=== PATIENT | male | born 1955 | race Caucasian/White ===

== ENCOUNTER 2016-06-22 19:30 | Inpatient (IN) | payer BC, OTHER ==
[~2016-06-22] VITALS: Ht 190.5 cm; Wt 129.7 kg
[~2016-06-22 19:30] MED LIST: BREATHING TX; CIPRO; DILTIAZEM 100 MG/VIAL (CARDIZEM) ADD-VANTAGE IV ONE; NAPROSYN; SODIUM CHLORIDE (ADD-VANTAGE) 100 ML IV ONE; SULF1TAB38 PO; TUSS; TYLENOL
[2016-06-22] MEDS ORDERED: DILTIAZEM 25 MG/5 ML INJ (CARDIZEM) VIAL ONE (19:31)
[2016-06-22] MEDS ORDERED: NS IV 1000 ML 1,000 ML ONE (19:31)
[2016-06-22] MEDS ORDERED: DILTIAZEM 25 MG/5 ML INJ (CARDIZEM) VIAL IVP ONE (20:00)
[2016-06-22] MEDS ORDERED: DILTIAZEM DRIP 100 MG in SODIUM CHLORIDE (ADD-VANTAGE) 100 ML IV SCH (20:00)
[2016-06-22] MEDS ORDERED: ASPIRIN 81 MG CHEW (CHILDREN'S ASA) PO ONE (20:00)
[2016-06-22 20:03] LABS: BASOPHILS % (AUTO) 0 % (0-10); EOSINOPHILS # (AUTO) 0.3 10^3/uL (0.0-0.3); EOSINOPHILS % (AUTO) 4 % (0-10); LYMPHOCYTES # (AUTO) 2.9 X 10^3 (1.0-4.0); LYMPHOCYTES % (AUTO) 34 % (12-44); MEAN CORPUSCULAR HEMOGLOBIN 31 PG (25-34); MEAN CORPUSCULAR HGB CONC 35 G/DL (32-36); MEAN CORPUSCULAR VOLUME 88 FL (80-99); MEAN PLATELET VOLUME 9.9 FL (7.4-10.4); MONOCYTES # (AUTO) 0.9 X 10^3 (0.0-1.0); MONOCYTES % (AUTO) 11 % (0-12); NEUTROPHILS # (AUTO) 4.2 X 10^3 (1.8-7.8); NEUTROPHILS % (AUTO) 50 % (42-75); PLATELET COUNT 196 10^3/uL (130-400); RED BLOOD COUNT 5.33 10^6/uL (4.35-5.85); RED CELL DISTRIBUTION WIDTH 12.4 % (10.0-14.5); WHITE BLOOD COUNT 8.4 10^3/uL (4.3-11.0)
--- NOTE | 2016-06-22 20:05 | ED Cardiac General ---
History of Present Illness General Chief Complaint: Cardiac/General Problems Stated Complaint: IRREGULAR HEART RATE Nursing Triage Note: PT TO ER WITH C/O PALPITATIONS, IRREG HEART RATE, ET LIGHT-HEADEDNESS STARTING AT APPROX 1920. Source: patient Exam Limitations: no limitations History of Present Illness Time seen by provider: 19:41 Initial Comments Here with report of irregular heart rate that started at about 20 minutes ago. He states he was sitting at work and stood up and felt his heartbeat very irregular. He had them check it and they noted that his heart rate was very irregular so he came here. States that he's had history of intermittent palpitations in the past but usually clears within a few seconds to not more than a minute. Tonight it suddenly started and he felt the onset. Denies significant chest pain but feels a fluttering in his chest. Denies breathing problems, nausea, vomiting or diarrhea. Not on any medicines regularly and states overall is pretty healthy. Timing/Duration: 1/2 hour, constant Severity: moderate Location: central Prior CP/Workup: no prior chest pain NTG SL STORY WRITER: No ASA po STORY WRITER: No Associated Systoms: No Chest Pain, No Cough, No Diaphoresis, No Fever/Chills, No Nausea/Vomiting, No Shortness of Air Allergies and Home Medications Allergies Coded Allergies: No Known Drug Allergies (Verified Allergy, Unknown, 04/24/07) Home Medications No Active Prescriptions or Reported Meds Review of Systems Constitutional: see HPINo chills, No fever EENTM: No Symptoms Reported Respiratory: No Symptoms ReportedDenies Orthopnea, Denies Shortness of Air Cardiovascular: Denies Chest Pain, Lightheadedness Palpitations Gastrointestinal: No Symptoms ReportedDenies Abdominal Pain, Denies Nausea, Denies Vomiting Genitourinary: No Symptoms Reported Musculoskeletal: no symptoms reported Skin: no symptoms reported All Other Systems Reviewed Negative Unless Noted: Yes Past Hiddpae-Ntsrce-Ygbkpu Hx Patient Social History Alcohol Use: Occasionally Uses Recreational Drug Use: No Smoking Status: Former Smoker Recent Foreign Travel: No Contact w/Someone Who Travel: No Recent Infectious Disease Expo: No Surgeries HX Surgeries: Yes Surgeries: Adenoidectomy Respiratory Hx Respiratory Disorders: No Cardiovascular Hx Cardiac Disorders: No Reproductive System Hx Reproductive Disorders: No Genitourinary Hx Genitourinary Disorders: No Gastrointestinal Hx Gastrointestinal Disorders: No Musculoskeletal Hx Musculoskeletal Disorders: Yes (BACK PAIN,SPASMS) Endocrine Hx Endocrine Disorders: No HEENT HX ENT Disorders: No Psychosocial Hx Psychiatric Problems: No Blood Transfusions Hx Blood Disorders: No Reviewed Nursing Assessment Reviewed/Agree w Nursing PMH: Yes Family Medical History Significant Family History: No Pertinent Family Hx Physical Exam Vital Signs Vital Sign - Last 12Hours 06/22/16 06/22/16 06/22/16 19:30 19:44 19:45 Temp 98.8 Pulse 154 Resp 20 B/P 145/92 Pulse Ox 93 O2 Delivery Nasal Cannula O2 Flow Rate 2 Capillary Refill : Less Than 3 Seconds General Appearance: No Apparent Distress WD/WN HEENT: PERRL/EOMI Pharynx Normal Neck: Non Tender Supple Respiratory: Lungs Clear Normal Breath Sounds Cardiovascular: No Murmur Irregularly Irregular Tachycardia Gastrointestinal: Non Tender Soft Extremity: Non Tender No Calf Tenderness Neurologic/Psychiatric: Alert Oriented x3 Skin: Normal Color Warm/Dry Progress/Results/Core Measures Results/Orders Lab Results Laboratory Tests Test 06/22/16 19:35 Range/Units Activated Partial Thromboplast Time 25 24-35 SEC Alanine Aminotransferase (ALT/SGPT) 25 0-55 U/L Albumin 4.4 3.2-4.5 G/DL Alkaline Phosphatase 68 40-136 U/L Anion Gap 11 5-14 MMOL/L Aspartate Amino Transf (AST/SGOT) 15 5-34 U/L BUN/Creatinine Ratio 16 Basophils # (Auto) 0.0 0.0-0.1 10^3/uL Basophils (%) (Auto) 0 0-10 % Blood Urea Nitrogen 16 7-18 MG/DL Calcium Level 9.1 8.5-10.1 MG/DL Carbon Dioxide Level 24 21-32 MMOL/L Chloride Level 106 98-107 MMOL/L Creatinine 0.97 0.60-1.30 MG/DL Eosinophils # (Auto) 0.3 0.0-0.3 10^3/uL Eosinophils (%) (Auto) 4 0-10 % Estimat Glomerular Filtration Rate > 60 Glucose Level 103 70-105 MG/DL Hematocrit 47 40-54 % Hemoglobin 16.3 13.3-17.7 G/DL INR Comment 1.0 0.8-1.4 Lymphocytes # (Auto) 2.9 1.0-4.0 X 10^3 Lymphocytes (%) (Auto) 34 12-44 % Magnesium Level 2.4 1.8-2.4 MG/DL Mean Corpuscular Hemoglobin 31 25-34 PG Mean Corpuscular Hemoglobin Concent 35 32-36 G/DL Mean Corpuscular Volume 88 80-99 FL Mean Platelet Volume 9.9 7.4-10.4 FL Monocytes # (Auto) 0.9 0.0-1.0 X 10^3 Monocytes (%) (Auto) 11 0-12 % Myoglobin 44.3 10.0-92.0 NG/ML Neutrophils # (Auto) 4.2 1.8-7.8 X 10^3 Neutrophils (%) (Auto) 50 42-75 % Platelet Count 196 130-400 10^3/uL Potassium Level 3.8 3.6-5.0 MMOL/L Prothrombin Time 13.1 12.2-14.7 SEC Red Blood Count 5.33 4.35-5.85 10^6/uL Red Cell Distribution Width 12.4 10.0-14.5 % Sodium Level 141 135-145 MMOL/L Total Bilirubin 0.4 0.1-1.0 MG/DL Total Protein 6.6 6.4-8.2 G/DL Troponin I < 0.30 <0.30 NG/ML White Blood Count 8.4 4.3-11.0 10^3/uL My Orders Orders-EDEN ALVAREZ MD Sodium Chloride (Add-Faxon) (Ns (Add-V (06/22/16 19:30) Diltiazem Drip (Cardizem Drip) (06/22/16 19:30) Diltiazem Injection (Cardizem Injection) (06/22/16 19:31) Ns Iv 1000 Ml (Sodium Chloride 0.9%) (06/22/16 19:31) Cbc With Automated Diff (06/22/16 19:52) Magnesium (06/22/16 19:52) Chest 1 View, Ap/Pa Only (06/22/16 19:52) Ekg Tracing (06/22/16 19:52) Cardiac Profile 1 (06/22/16 19:52) Comprehensive Metabolic Panel (06/22/16 19:52) Myoglobin Serum (06/22/16 19:52) Protime With Inr (06/22/16 19:52) Partial Thromboplastin Time (1/25/17 19:52) O2 (06/22/16 19:52) Monitor-Rhythm Ecg Trace Only (06/22/16 19:52) Lipid Panel (06/23/16 06:00) Aspirin Chewable Tablet (Baby Aspirin Ch (06/22/16 20:00) Saline Lock/Iv-Start (06/22/16 19:52) Sodium Chloride (Ad... W/Diltiazem Drip (06/22/16 20:00) Diltiazem Injection (Cardizem Injection) (06/22/16 20:00) Apixaban Tablet (Eliquis Tablet) (06/22/16 20:45) Medications Given in ED Current Medications Medications Dose Ordered Sig/Yudi Route Start Time Stop Time Status Last Admin Dose Admin Aspirin 324 mg ONCE ONCE PO 06/22/16 20:00 06/22/16 20:01 DC 06/22/16 20:00 324 MG Diltiazem HCl 10 mg ONCE ONCE IVP 06/22/16 20:00 06/22/16 20:01 DC 06/22/16 20:03 10 MG Diltiazem HCl 100 mg STK-MED ONCE IV 06/22/16 19:30 06/22/16 19:38 DC 06/22/16 19:44 10 MG Diltiazem HCl 25 mg 25 mg STK-MED ONCE .ROUTE 06/22/16 19:31 06/22/16 19:38 DC 06/22/16 19:42 10 MG Sodium Chloride 100 ml STK-MED ONCE IV 06/22/16 19:30 06/22/16 19:38 DC 06/22/16 19:44 Sodium Chloride 1,000 ml STK-MED ONCE .ROUTE 06/22/16 19:31 06/22/16 19:39 DC 06/22/16 19:42 Vital Signs/I&O Vital Sign - Last 12Hours 06/22/16 06/22/16 06/22/16 19:30 19:44 19:45 Temp 98.8 Pulse 154 143 Resp 20 16 B/P 145/92 Pulse Ox 93 O2 Delivery Nasal Cannula O2 Flow Rate 2 Progress Note : Progress Note Seen and evaluated on arrival IV, labs, EKG and chest x-ray ordered. ASA 324 mg by mouth ordered. Cardizem 10 mg IV and 10 mg per hour drip initiated. Normal saline 1 L bolus. Monitor patient. 1999: Repeat dosing of Cardizem 10 mg IV and increasing drip rate to 15 mg per hour due to heart rate still greater than 110 systolic. Heart rate has declined though from maximum 160s to max of 130s currently. 2039: Cardizem drip increased to 20 mg per hour. I did discuss the case with Dr. Whyte. She accepts patient for admission. Consult Dr. Ruiz. 2044: Dr. Ruiz consulted. We will initiate Eliquis 5 mg by mouth and continue that twice a day. Findings and concerns discussed with patient and family who agree with plan. Admit, inpatient status to ICU. ECG Initial ECG Impression Date: Jun 22, 2016 Initial ECG Impression Time: 19:35 Initial ECG Rate: 154 Initial ECG Rhythm: A Fib/Flutter Comment Atrial fibrillation with rapid ventricular response. No evidence of ST elevation NE. No previous available for comparison. Interpreted by me. Diagnostic Imaging Diagonstic Imaging: Xray Plain Films/CT/US/NM/MRI: chest Comments NAME: GABRIELE BECK [facility] REC#: [id number] PT STATUS: REG ER : 1955 PHYSICIAN: EDEN ALVAREZ MD ADMIT DATE: 06/22/16/ER Draft Date of Exam:06/22/16 CHEST 1 VIEW, AP/PA ONLY INDICATION: Fluttering in the chest. EXAMINATION: Chest, 06/22/2016. COMPARISON: Chest from 09/16/2007. FINDINGS: The heart is enlarged. Pulmonary vasculature is mildly congested. There are no infiltrates or effusions. There is no pneumothorax. IMPRESSION: Cardiomegaly with mild prominence of the pulmonary vasculature. Dictated on workstation # [id number] Dict: 06/22/162037 Trans: 06/22/162042 LOCATED WITHIN [facility] [id number] Interpreted by: RAQUEL MILLS MD Electronically signed by: Reviewed: Reviewed by Me Departure Communication Time/Spoke to Admitting Phy: 20:40 Time/Spoke to Consulting Physi: 20:45 Impression Impression: Primary Impression: Atrial fibrillation with RVR Disposition: ADMITTED INPATIENT Condition: Stable Decision to Admit Reason: Admit from ER (General) Decision to Admit/Date: Jun 22, 2016 Time/Decision to Admit Time: 20:40 Departure-Patient Inst. Referrals: ILIANA WHYTE DO (PCP/Family) Primary Care Physician Scripts No Active Prescriptions or Reported Meds EDEN ALVAREZ MD Jun 22, 2016 20:05
[2016-06-22 20:14] LABS: PROTHROMBIN TIME PATIENT 13.1 SEC (12.2-14.7)
[2016-06-22 20:24] LABS: ALANINE AMINOTRANSFERASE 25 U/L (0-55); ALBUMIN 4.4 G/DL (3.2-4.5); ANION GAP 11 MMOL/L (5-14); ASPARTATE AMINO TRANSFERASE 15 U/L (5-34); BILIRUBIN,TOTAL 0.4 MG/DL (0.1-1.0); BLOOD UREA NITROGEN 16 MG/DL (7-18); BUN/CREATININE RATIO 16; CALCIUM 9.1 MG/DL (8.5-10.1); CARBON DIOXIDE 24 MMOL/L (21-32); CHLORIDE 106 MMOL/L (98-107); CREATININE SERUM 0.97 MG/DL (0.60-1.30); GFR ESTIMATED > 60; GLUCOSE 103 MG/DL (70-105); MAGNESIUM 2.4 MG/DL (1.8-2.4); POTASSIUM 3.8 MMOL/L (3.6-5.0); SODIUM 141 MMOL/L (135-145); TOTAL PROTEIN 6.6 G/DL (6.4-8.2)
[2016-06-22 20:31] LABS: MYOGLOBIN SERUM 44.3 NG/ML (10.0-92.0)
--- NOTE | 2016-06-22 20:43 | Diagnostic Imaging Report ---
INDICATION: Fluttering in the chest. EXAMINATION: Chest, 06/22/2016. COMPARISON: Chest from 09/16/2007. FINDINGS: The heart is enlarged. Pulmonary vasculature is mildly congested. There are no infiltrates or effusions. There is no pneumothorax. IMPRESSION: Cardiomegaly with mild prominence of the pulmonary vasculature. Dictated by: Dictated on workstation # [id number]
[2016-06-22] MEDS ORDERED: APIXABAN 5 MG (ELIQUIS) TABLET PO ONE (20:45)
[2016-06-22 21:52] VITALS: BP 137/85
[2016-06-22] MEDS: CATHETER FLUSH 10 ML SYR IV SCH (22:00)
[2016-06-22] MEDS ORDERED: NS IV 1000 ML 1,000 ML IV SCH (22:00)
[2016-06-22] MEDS ORDERED: DILTIAZEM DRIP 100 MG/NS 100 ML IV SCH ×2 (22:00)
[2016-06-22] MEDS ORDERED: CATHETER FLUSH 10 ML SYR IV PRN (22:00)
[2016-06-22 23:00] VITALS: BP 102/64
[2016-06-23] VITALS (10 sets, daily range): BP systolic 91–120; BP diastolic 58–77
[2016-06-23 05:01] LABS: BASOPHILS % (AUTO) 0 % (0-10); EOSINOPHILS # (AUTO) 0.3 10^3/uL (0.0-0.3); EOSINOPHILS % (AUTO) 5 % (0-10); LYMPHOCYTES # (AUTO) 2.6 X 10^3 (1.0-4.0); LYMPHOCYTES % (AUTO) 38 % (12-44); MEAN CORPUSCULAR HEMOGLOBIN 30 PG (25-34); MEAN CORPUSCULAR HGB CONC 34 G/DL (32-36); MEAN CORPUSCULAR VOLUME 89 FL (80-99); MEAN PLATELET VOLUME 10.1 FL (7.4-10.4); MONOCYTES # (AUTO) 0.7 X 10^3 (0.0-1.0); MONOCYTES % (AUTO) 10 % (0-12); NEUTROPHILS # (AUTO) 3.1 X 10^3 (1.8-7.8); NEUTROPHILS % (AUTO) 46 % (42-75); PLATELET COUNT 193 10^3/uL (130-400); RED BLOOD COUNT 5.14 10^6/uL (4.35-5.85); RED CELL DISTRIBUTION WIDTH 12.6 % (10.0-14.5); WHITE BLOOD COUNT 6.7 10^3/uL (4.3-11.0)
[2016-06-23] MEDS: CATHETER FLUSH 10 ML SYR IV SCH (05:12)
[2016-06-23 05:19] LABS: ALANINE AMINOTRANSFERASE 21 U/L (0-55); ALBUMIN 3.9 G/DL (3.2-4.5); ANION GAP 7 MMOL/L (5-14); ASPARTATE AMINO TRANSFERASE 14 U/L (5-34); BILIRUBIN,TOTAL 0.4 MG/DL (0.1-1.0); BLOOD UREA NITROGEN 16 MG/DL (7-18); BUN/CREATININE RATIO 19; CARBON DIOXIDE 24 MMOL/L (21-32); CHLORIDE 109 MMOL/L (98-107); CREATININE SERUM 0.84 MG/DL (0.60-1.30); GFR ESTIMATED > 60; GLUCOSE 103 MG/DL (70-105); MAGNESIUM 2.4 MG/DL (1.8-2.4); POTASSIUM 4.1 MMOL/L (3.6-5.0); SODIUM 140 MMOL/L (135-145); TOTAL PROTEIN 5.8 G/DL (6.4-8.2)
[2016-06-23 05:25] LABS: CHOLESTEROL 150 MG/DL (< 200); DIRECT LDL 112 MG/DL (1-129); TRIGLYCERIDES 104 MG/DL (<150); VLDL CHOLESTEROL 21 MG/DL (5-40)
[2016-06-23] MEDS ORDERED: FLU TRIvalent (5 YOA+) 2016-17 (AFLURIA) 0.5 ML IM ONE (07:30)
--- NOTE | 2016-06-23 07:41 | Diagnostic Imaging Report ---
INDICATION: Cardiac dysrhythmia Comparison is made to the study of 06/22/2016. FINDINGS: Heart size and pulmonary vascularity are within normal limits, and the lungs are clear, bilaterally. IMPRESSION: Unremarkable chest. Dictated by: Dictated on workstation # [id number]
--- NOTE | 2016-06-23 08:53 | Consultation-Cardiology ---
HPI-Cardiology Cardiology Consultation: Date of Consultation 06/23/16 Date of Admission 06-22-16 Attending Physician Iliana Whyte DO Admitting Physician Iliana Whyte DO Consulting Physician Beth Ruiz MD HPI: Chief Complaint: New onset a-fib with RVR Mr. Beck is a 60 year old male admitted to ICU from the ED yesterday with new onset a-fib with RVR. He states he has been under increased stress d/t the recent illness of his . She is currently a patient at this hospital. He states he was visiting her yesterday. He got up to leave the room and had a sudden onset of a rapid HR. He reports he has had episodes of palpitations in the past, but typically they resolve after about 5 minutes. He reports the episode yesterday persisted. He reports feeling lightheaded. No c/o dyspnea, CP, syncope or near syncope. He does not report any LE edema. No c/o n/v/d. No c/o fever or chills. He states he sleeps in a recliner at home. He states he used to sleep in bed, but he would wake up during the night gasping with a sensation that he was not breathing. He reports since sleeping in the recliner he feels these episodes have resolved, but he states he does snore. Review of Systems-Cardiology Review of Systems Constitutional: As described under HPI Eyes: No blurred vision, No drainage, No pain, No vision change Ears/Nose/Throat: No ear discharge, No ear pain, No nasal drainage, No ulcerations Respiratory: As described under HPI Cardiovascular: As described under HPI Gastrointestinal: No constipation, No diarrhea, No nausea, No vomiting, No stool coloration changes Genitourinary: No dysuria, No discharge, No frequency, No hematuria, No urgency Musculoskeletal: back pain (chronic) Skin: No rash, No skin related problems, No ulcerations Psychiatric/Neurological: No anxiety, No depression, No focal weakness, No seizure, No syncope Hematologic: No bleeding abnormalities All Other Systems Reviewed Negative Unless Noted: Yes PRH-Vwnvii-Kgclqk Hx Patient Social History Alcohol Use: Occasionally Uses Recreational Drug Use: No Smoking Status: Former Smoker Recent Foreign Travel: No Recent Infectious Disease Expo: No Physical Abuse Screen: No Sexual Abuse: No Past Medical History PMH As described under Assessment. Family Medical History Family Medical History: He reports his mother had an RI and cancer. No reported h/o premature CAD or SCD. Family History: Hypertension 19 MOTHER Allergies and Home Medications Allergies Coded Allergies: No Known Drug Allergies (Verified , 04/24/07) Home Medications No Active Prescriptions or Reported Meds Physical Exam-Cardiology Physical Exam Vital Signs/I&O Vital Sign - Last 12Hours 06/22/16 06/22/16 06/22/16 06/22/16 21:52 21:55 21:58 22:07 Temp 98.4 Pulse 104 102 103 Resp 13 22 B/P 137/85 Pulse Ox 95 96 O2 Delivery Nasal Cannula Nasal Cannula Nasal Cannula O2 Flow Rate 2.00 2 2.00 06/22/16 06/23/16 06/23/16 06/23/16 23:00 00:00 00:00 00:00 Temp 98.7 Pulse 82 79 Resp 14 17 B/P 102/64 96/70 Pulse Ox 95 96 98 O2 Delivery Nasal Cannula Nasal Cannula Nasal Cannula O2 Flow Rate 2.00 2.00 2.00 06/23/16 06/23/16 06/23/16 06/23/16 00:15 01:00 01:00 02:00 Pulse 85 72 72 58 Resp 16 12 B/P 102/62 103/58 Pulse Ox 95 94 O2 Delivery Nasal Cannula Nasal Cannula O2 Flow Rate 2.00 2.00 06/23/16 06/23/16 06/23/16 06/23/16 03:00 04:00 04:00 04:00 Temp 97.8 Pulse 68 64 Resp 13 15 B/P 108/73 105/70 Pulse Ox 98 97 96 O2 Delivery Nasal Cannula Nasal Cannula Nasal Cannula Nasal Cannula O2 Flow Rate 2.00 2.00 2.00 2.00 06/23/16 06/23/16 06/23/16 06/23/16 05:00 05:20 06:00 08:02 Temp 97.9 Pulse 71 73 71 Resp 11 13 B/P 120/77 109/74 Pulse Ox 96 97 O2 Delivery Nasal Cannula Nasal Cannula O2 Flow Rate 2.00 2.00 06/23/16 08:03 Pulse Ox 96 O2 Delivery Nasal Cannula O2 Flow Rate 2.00 Intake and Output 06/23/16 00:00 Intake Total 700 ml Balance 700 ml Capillary Refill : Less Than 3 Seconds Constitutional: AAO x 3 HEENT: PERRLNo discharge, hearing is well preserved oral hygience is goodNo ulceration, No xanthelasmas are seen Neck: No carotid bruit, carotid pulses are 2 + bilaterally Respiratory: No accessory muscle use, No respiratory distress, chest expansion is symmetric chest is bilaterally symmetric lungs clear to percussion lungs clear to auscultation Cardiovascular: irregularly irregularNo JVD, S1 and S2 Gastrointestinal: No tender, soft round Extremities: no lower extremity edema bilateral Neurologic/Psychiatric: grossly intact Data Review Labs Laboratory Tests 06/22/16 19:35: Activated Partial Thromboplast Time 25, Alanine Aminotransferase (ALT/SGPT) 25, Albumin 4.4, Alkaline Phosphatase 68, Anion Gap 11, Aspartate Amino Transf (AST/ SGOT) 15, BUN/Creatinine Ratio 16, Basophils # (Auto) 0.0, Basophils (%) (Auto) 0, Blood Urea Nitrogen 16, Calcium Level 9.1, Carbon Dioxide Level 24, Chloride Level 106, Creatinine 0.97, Eosinophils # (Auto) 0.3, Eosinophils (%) (Auto) 4, Estimat Glomerular Filtration Rate > 60, Glucose Level 103, Hematocrit 47, Hemoglobin 16.3, INR Comment 1.0, Lymphocytes # (Auto) 2.9, Lymphocytes (%) ( Auto) 34, Magnesium Level 2.4, Mean Corpuscular Hemoglobin 31, Mean Corpuscular Hemoglobin Concent 35, Mean Corpuscular Volume 88, Mean Platelet Volume 9.9, Monocytes # (Auto) 0.9, Monocytes (%) (Auto) 11, Myoglobin 44.3, Neutrophils # ( Auto) 4.2, Neutrophils (%) (Auto) 50, Platelet Count 196, Potassium Level 3.8, Prothrombin Time 13.1, Red Blood Count 5.33, Red Cell Distribution Width 12.4, Sodium Level 141, Total Bilirubin 0.4, Total Protein 6.6, Troponin I < 0.30, White Blood Count 8.4 06/23/16 04:29: Alanine Aminotransferase (ALT/SGPT) 21, Albumin 3.9, Alkaline Phosphatase 64, Anion Gap 7, Aspartate Amino Transf (AST/SGOT) 14, BUN/Creatinine Ratio 19, Basophils # (Auto) 0.0, Basophils (%) (Auto) 0, Blood Urea Nitrogen 16, Calcium Level 8.0L, Carbon Dioxide Level 24, Chloride Level 109H, Creatinine 0.84, Eosinophils # (Auto) 0.3, Eosinophils (%) (Auto) 5, Estimat Glomerular Filtration Rate > 60, Glucose Level 103, Hematocrit 46, Hemoglobin 15.5, Lymphocytes # (Auto) 2.6, Lymphocytes (%) (Auto) 38, Magnesium Level 2.4, Mean Corpuscular Hemoglobin 30, Mean Corpuscular Hemoglobin Concent 34, Mean Corpuscular Volume 89, Mean Platelet Volume 10.1, Monocytes # (Auto) 0.7, Monocytes (%) (Auto) 10, Neutrophils # (Auto) 3.1, Neutrophils (%) (Auto) 46, Platelet Count 193, Potassium Level 4.1, Red Blood Count 5.14, Red Cell Distribution Width 12.6, Sodium Level 140, Total Bilirubin 0.4, Total Protein 5.8L, White Blood Count 6.7, Cholesterol Level 150, HDL Cholesterol 30L, LDL Cholesterol Direct 112, Phosphorus Level 4.0, Triglycerides Level 104, VLDL Cholesterol 21 Radiology NAME: GABRIELE BECK [facility] REC#: [id number] PT STATUS: ADM IN : 1955 PHYSICIAN: ILIANA WHYTE DO ADMIT DATE: 06/22/16/ICU Signed Date of Exam: 06/23/16 CHEST 1 VIEW, AP/PA ONLY INDICATION: Cardiac dysrhythmia Comparison is made to the study of 06/22/2016. FINDINGS: Heart size and pulmonary vascularity are within normal limits, and the lungs are clear, bilaterally. IMPRESSION: Unremarkable chest. Dictated by: Dictated on workstation # [id number] Dict: 06/23/16 0653 Trans: 06/23/16 0802 JUANA [id number] Interpreted by: COLLIN MOLINA MD Electronically signed by:COLLIN MOLINA MD 06/23/16 0805 ECG Impression ECG Initial ECG Impression: Atrial Fibrillation A/P-Cardiology Assessment/Admission Diagnosis Newly diagnosed a-fib with RVR (06/22/15). Going by patient history, this appears to be PAF That he has had for a number of years OAC has been initiated with Eliquis Exercise stress echo of March 2011 showed no evidence of any significant myocardial ischemia or infarction Echocardiogram of March 2011 showed normal global LV systolic function with an LVEF of 60%. Trivial MR and TR. Mild diastolic dysfunction of LV. Mild concentric LVH Quit smoking in 1982 Family h/o RI Suspected sleep apnea syndrome Discussion and Recomendations New onset of a-fib with RVR. Rate is currently controlled on IV Cardizem. We will change to oral. OAC has been initiated with Eliquis. Echocardiogram today to evaluate structure and LVEF. Suspected sleep apnea syndrome advise out pt work up. We would like to thank Dr. Whyte for this consult. Further recommendations will be based on his hospital course. This consult is being scribed by Yanet Simpson APRN on behalf of Dr. Ruiz after discussion regarding plan of care. Clinical Quality Measures AMI/AHF: ASA po Prior to arrival: No DVT/VTE Risk/Contraindication: Risk Factor Score Per Nursin RFS Level Per Nursing on Admit: 2=Moderate Physician Assessment Physician Assessment Lungs: clear Cor: reg A&R * As documented in our note above, which I have modified and updated * I spoke in detail with the patient and his regarding the pathophysiology , possible etiologies, and management options for PAF. Right now we are pursuing a rhythm control and stroke prophylaxis approach that currently seems clinically successful. We are trying to change to oral dilt. If tolerated with good heart rate control, we may discharge with outpt f/u instructions * Oral anticoag options were reviewed, including the rationale for OAC. Pros and cons were reviewed. He has agreed to apixaban * Sleep apnea eval is recommended. He will pursue this on an outpatient basis with MARIANGEL Hwang Jun 23, 2016 08:53 BETH RUIZ MD FACP [facility] Jun 23, 2016 09:19
[2016-06-23] MEDS ORDERED: DILTIAZEM 300 MG (CARDIZEM CD) CAP PO SCH (09:00)
[2016-06-23] MEDS ORDERED: APIXABAN 5 MG (ELIQUIS) TABLET PO SCH (09:00)
[2016-06-23] MEDS ORDERED: DILTIAZEM 180 MG (CARDIZEM CD) CAP PO ONE (09:00)
[2016-06-23] MEDS ORDERED: DILT300C51 PO (13:15)
[2016-06-23] MEDS ORDERED: APIX5TAB PO (13:15)
--- NOTE | 2016-06-23 20:11 | History & Physicial ---
History of Present Illness History of Present Illness Reason for visit/HPI This is a 60 year old male who was at the hospital visiting his when he stood up to leave and had the onset of palpitations. He did admit to some dizziness but no chest pain and no shortness of air. However, the palpitations persisted so her presented to the emergency room where he was found to have atrial fibrillation with RVR. His lab was all normal. It was decided to admit him to the ICU on a cardizem drip and consult cardiology. When I questioned him about possible sleep apnea he denied any snoring or episodes of apnea but later told cardiology that he has been sleeping in a recliner for sometime due to waking up gasping for air. He does report intermittent episodes of palpitations in the past but states they would only last about 5 minutes then go away. He states that he did have a few beers over the past weekend but has not been drinking during this week. He has been under increased stress recently due to his 's health issues. Date of Admission Jun 22, 2016 at 20:45 I consulted on this patient on 06/23/16 20:06 Attending Physician Eleonora Whyte DO Admitting Physician Eleonora Whyte DO Consult Allergies and Home Medications Allergies Coded Allergies: No Known Drug Allergies (Verified , 04/24/07) Home Medications Apixaban 5 Mg Tablet #60 5 MG PO BID Prescribed by: ALY LEE on 06/23/16 1315 Diltiazem HCl 300 Mg Cap.er.24h #30 300 MG PO DAILY Prescribed by: ALY LEE on 06/23/16 1315 Past Aorsqms-Qlvcwt-Uausbc Hx Patient Social History Alcohol Use: Occasionally Uses Recreational Drug Use: No Smoking Status: Former Smoker Physical Abuse Screen: No Sexual Abuse: No Recent Foreign Travel: No Contact w/other who traveled: No Recent Hopitalizations: No Recent Infectious Disease Expo: No Surgeries HX Surgeries: Yes Surgeries: Adenoidectomy Respiratory Hx Respiratory Disorders: No Cardiovascular Hx Cardiovascular Disorders: No Neurological Hx Neurological Disorders: No Reproductive System Hx Reproductive Disorders: No Genitourinary Hx Genitourinary Disorders: No Gastrointestinal Hx Gastrointestinal Disorders: No Musculoskeletal Hx Musculoskeletal Disorders: Yes (BACK PAIN,SPASMS) Endocrine Hx Endocrine Disorders: No HEENT HX ENT Disorders: No Psychosocial Hx Psychiatric Problems: No Blood Transfusions Hx Blood Disorders: No Reviewed Nursing Assessment Reviewed/Agree w Nursing PMH: Yes Family Medical History Significant Family History: No Pertinent Family Hx Family Hx: Hypertension 19 MOTHER Constitutional: No no symptoms reported, No see HPI, No chills, No diaphoresis , No dizziness, No fever, No malaise, No weakness, No weight gain, No weight loss, No other EENTM: No blurred vision, No dental problems, No double vision, No ear discharge, No ear pain, No epistaxis, No eye pain, No hearing loss, No hoarseness, No mouth pain, No mouth swelling, No no symptoms reported, No nose congestion, No nose pain, No other, No see HPI, No tearing, No throat pain, No throat swelling, No vision loss Respiratory: No no symptoms reported, No see HPI, No cough, No dyspnea on exertion, No hemoptysis, No orthopnea, No phlegm, No short of breath, No stridor , No wheezing, No other Cardiovascular: palpitations Gastrointestinal: No RUQ, No LUQ, No RLQ, No LLQ, No no symptoms reported, No see HPI, No abdominal pain, No constipation, No diarrhea, No dysphagia, No hematemesis, No heartburn, No jaundice, No loss of appetite, No melena, No nausea, No vomiting, No other Genitourinary: No no symptoms reported, No see HPI, No decreased output, No discharge, No dysuria, No frequency, No hematuria, No hesitancy, No incontinence , No nocturia, No pain, No other Musculoskeletal: No no symptoms reported, No see HPI, No back pain, No gout, No joint pain, No joint swelling, No muscle pain, No muscle stiffness, No muscle cramps, No muscle twitching, No muscle weakness, No neck pain, No other Skin: No no symptoms reported, No see HPI, No change in color, No change in hair/nails, No dryness, No hx of skin cancer, No lesions, No lumps, No pruritus , No rash, No other Psychiatric/Neurological: Other (recent stress with wifes illness) Physical Exam Vital Signs Vital Sign - Last 12Hours 06/22/16 06/22/16 06/22/16 19:30 19:44 19:45 Temp 98.8 Pulse 154 Resp 20 B/P 145/92 Pulse Ox 93 O2 Delivery Nasal Cannula O2 Flow Rate 2 Capillary Refill : Less Than 3 Seconds General Appearance: No Apparent Distress HEENT: Normal ENT Inspection Neck: Supple Respiratory: Lungs Clear Cardiovascular: Systolic Murmur Gallop/S3 Irregularly Irregular Gastrointestinal: Normal Bowel Sounds Non Tender Soft Rectal: Deferred Back: No CVA Tenderness Extremity: Non Tender No Calf Tenderness No Pedal Edema Neurologic/Psychiatric: Alert Oriented x3 Skin: Normal Color Warm/Dry Lymphatic: No Adenopathy Comments Laboratory Tests 06/23/16 04:29: Alanine Aminotransferase (ALT/SGPT) 21, Albumin 3.9, Alkaline Phosphatase 64, Anion Gap 7, Aspartate Amino Transf (AST/SGOT) 14, BUN/Creatinine Ratio 19, Basophils # (Auto) 0.0, Basophils (%) (Auto) 0, Blood Urea Nitrogen 16, Calcium Level 8.0L, Carbon Dioxide Level 24, Chloride Level 109H, Cholesterol Level 150 , Creatinine 0.84, Eosinophils # (Auto) 0.3, Eosinophils (%) (Auto) 5, Estimat Glomerular Filtration Rate > 60, Glucose Level 103, HDL Cholesterol 30L, Hematocrit 46, Hemoglobin 15.5, LDL Cholesterol Direct 112, Lymphocytes # (Auto ) 2.6, Lymphocytes (%) (Auto) 38, Magnesium Level 2.4, Mean Corpuscular Hemoglobin 30, Mean Corpuscular Hemoglobin Concent 34, Mean Corpuscular Volume 89, Mean Platelet Volume 10.1, Monocytes # (Auto) 0.7, Monocytes (%) (Auto) 10, Neutrophils # (Auto) 3.1, Neutrophils (%) (Auto) 46, Phosphorus Level 4.0, Platelet Count 193, Potassium Level 4.1, Red Blood Count 5.14, Red Cell Distribution Width 12.6, Sodium Level 140, Total Bilirubin 0.4, Total Protein 5.8L, Triglycerides Level 104, VLDL Cholesterol 21, White Blood Count 6.7 Assessment/Plan Assessment and Plan 1. New onset atrial fibrillation--switch over to oral cardizem, on eliquis, check 2-D ECHO and await cardiology recommendations 2. Suspected Sleep Apnea--will need sleep study as outpatient Clinical Quality Measures AMI/AHF: ASA po Prior to arrival: No DVT/VTE Risk/Contraindication: Risk Factor Score Per Nursin RFS Level Per Nursing on Admit: 2=Moderate ELEONORA WHYTE DO Jun 23, 2016 20:11
--- NOTE | 2016-06-23 20:19 | Discharge Summary ---
Diagnosis/Chief Complaint Date of Admission Jun 22, 2016 at 20:45 Date of Discharge Jun 23, 2016 at 13:50 Discharge Date: Admission Diagnosis Admission Diagnosis 1. New onset atrial fibrillation--switch over to oral cardizem, on eliquis, check 2-D ECHO and await cardiology recommendations 2. Suspected Sleep Apnea--will need sleep study as outpatient Discharge Diagnosis 1. New Onset Atrial Fibrillation 2. Suspected Obstructive Sleep Apnea 3. Recent Family Stressors Reason Hospital Visit This is a 60 year old male who was at the hospital visiting his when he stood up to leave and had the onset of palpitations. He did admit to some dizziness but no chest pain and no shortness of air. However, the palpitations persisted so her presented to the emergency room where he was found to have atrial fibrillation with RVR. His lab was all normal. It was decided to admit him to the ICU on a cardizem drip and consult cardiology. When I questioned him about possible sleep apnea he denied any snoring or episodes of apnea but later told cardiology that he has been sleeping in a recliner for sometime due to waking up gasping for air. He does report intermittent episodes of palpitations in the past but states they would only last about 5 minutes then go away. He states that he did have a few beers over the past weekend but has not been drinking during this week. He has been under increased stress recently due to his 's health issues. Discharge Summary Hospital Course Hospital Course This is a 60 year old male who was at the hospital visiting his when he stood up to leave and had the onset of palpitations. He did admit to some dizziness but no chest pain and no shortness of air. However, the palpitations persisted so he presented to the emergency room where he was found to have atrial fibrillation with RVR. His lab was all normal. It was decided to admit him to the ICU on a cardizem drip and consult cardiology. When I questioned him about possible sleep apnea he denied any snoring or episodes of apnea but later told cardiology that he had been sleeping in a recliner for sometime due to waking up gasping for air. He does report intermittent episodes of palpitations in the past but states they would only last about 5 minutes then go away. He stated that he did have a few beers over the past weekend but denied drinking during this week. He has been under increased stress recently due to his 's health issues. He was admitted to the ICU on a cardizem drip and started on oral eliquis. By the following morning, his rate was controlled so he was converted over to oral cardizem. His echocardiogram was reviewed by cardiology and showed no acute abnormalities so it was decided he could be discharged home on oral cardizem with oral eliquis and followup with cardiology in 1-2 weeks. He will also followup with me after his cardiology appointment and we will arrange an outpatient sleep study. Labs Laboratory Tests 06/22/16 19:35: 06/23/16 04:29: Calcium Level 8.0L, Chloride Level 109H, HDL Cholesterol 30L, Total Protein 5.8L Procedures None. Discharge Physical Examination Allergies: Coded Allergies: No Known Drug Allergies (Verified , 04/24/07) Vitals & I&Os Vital Signs Date Time Temp Pulse Resp B/P Pulse Ox O2 Delivery O2 Flow Rate FiO2 06/23/16 11:49 96.6 06/23/16 11:48 Room Air 06/23/16 10:00 102 24 99 2.00 General Appearance: Alert, Oriented X3, Cooperative, No Acute Distress Respiratory: Clear to Auscultation Cardiovascular: Other (irregularyly irregular) Abdominal: Normal Bowel Sounds, Soft, No Tenderness Extremities: No Clubbing, No Cyanosis, No Edema Psych/Mental Status: Mental Status NL, Mood NL Discharge Home Medications Reviewed and agree with Discharge Medication list on patient's Discharge Instruction sheet Instructions to Patient/Family Please see electonic discharge instructions given to patient. Clinical Quality Measures AMI/AHF: ASA po Prior to arrival: No DVT/VTE Risk/Contraindication: Risk Factor Score Per Nursin RFS Level Per Nursing on Admit: 2=Moderate ILIANA DYKES DO Jun 23, 2016 20:19
--- NOTE | 2016-06-25 11:25 | ECHOCARDIOGRAPHY REPORT ---
PROCEDURE PHYSICIAN: MARQUISE RUIZ DATE OF PROCEDURE: 06/23/2016 TWO DIMENSIONAL ECHOCARDIOGRAM REPORT PRIMARY PHYSICIAN: Dr. Whyte OTHER PHYSICIAN: REFERRING PHYSICIAN: ORDERING PHYSICIAN: Dr. Ruiz INDICATION FOR THE PROCEDURE: Atrial fibrillation with a left ventricular response. MEASUREMENTS DERIVED VALUES LV DIAMETER (LAX) NORMALS NORMALS Diastolic 6. (3.6-5.2) Eject. Fract. (60%+/-6%) Systolic (2.3-3.9) Diastolic Vol. % Shortening (0.22-0.42) Systolic Vol. Aortic Root 3.5 IVS THICKNESS Diastolic 1.3 (0.6-1.1) LVPW THICKNESS Diastolic 1.2 (0.6-1.1) LA DIAMETER Systolic 4.5 (2.1-3.7) DESCRIPTION: Two-dimensional echocardiography shows normal global left ventricular systolic function with normal regional wall motion. Left ventricular ejection fraction is approximately 55%. The aortic, mitral and tricuspid valve leaflets show good leaflet excursion. There is mild enlargement of the left atrium and the left ventricle. There is mild concentric left ventricular hypertrophy. There is no significant pericardial effusion. Aortic, mitral and tricuspid valve leaflets show good leaflet excursion. Doppler imaging shows trivial to mild mitral, pulmonic and tricuspid regurgitation. There is no Doppler evidence of significant valvular stenosis on this study. The patient remained in atrial fibrillation throughout the course of this study. Tissue Doppler is suggestive of grade 2 diastolic dysfunction of the left ventricle. There also appears to be mild aortic regurgitation. There is no evidence of significant intracardiac shunt on this transthoracic echocardiographic study. Inferior vena cava is difficult to visualized; it appears mildly dilated. CONCLUSION: 1. Well preserved global left ventricular systolic function with an ejection fraction of 65%. 2. Mild left ventricular and left atrial enlargement. 3. Mild concentric left ventricular hypertrophy. 4. Trivial to mild mitral, tricuspid, pulmonic and aortic regurgitation. 5. No evidence of significant valvular stenosis. 6. Pulmonary artery systolic pressure is estimated to be approximately 30 mmHg. 7. No evidence of significant valvular stenosis. Job ID: [id number] Dictated Date: 06/24/2016 10:26:48 Co Founder And Director Date: 06/25/2016 11:17:17 / osmin
== END 2016-06-23 13:50 | disposition home or self-care (01) | DRG 310 ==
LOC: EDUNIT# 19:30 → ER 19:32 → ICU 20:45
PROVIDERS: ADMIT Family Medicine; ATTEND Family Medicine
DX: I48.0 Paroxysmal atrial fibrillation (principal); G47.33 Obstructive sleep apnea (adult) (pediatric); Z87.891 Personal history of nicotine dependence
CPT/HCPCS: 36415; 71010; 80053; 80061; 83735; 83874; 84100; 84484; 85025; 85610; 85730; 87081; 93005; 93041; 93306; 96361; 96365; 96366

== ENCOUNTER → 2016-07-05 | Outpatient (CLI) | payer BC ==
[~2016-07-05] VITALS: Ht 190.5 cm; Wt 131.1 kg
[~2016-07-05] MED LIST changes: +ALPR0.25 PO; +APIX5TAB PO; +ASPI-586 PO; +BUSP5TAB59 PO; +CEFD300C3 PO; +DILT300C51 PO; -DILTIAZEM 100 MG/VIAL (CARDIZEM) ADD-VANTAGE IV ONE; +REGADENOSON 0.4 MG/5 ML SYR (LEXISCAN) IV ONE; -SODIUM CHLORIDE (ADD-VANTAGE) 100 ML IV ONE; +TRAZ-28 PO
--- OUTSIDE RECORDS SUMMARY | 2016-07-05 10:50 | XMS REPORT | Continuity of Care Document ---
Author Author [facility] Organization [facility] Address Unknown Phone Unavailable Care Team Providers Care Account Classification Clerk Name Role Phone ILIANA DYKES DO PCP Insurance Providers Payer Name Policy Number Subscriber Name Relationship [facility] [id number] Jocelyn Beck 01 Advance Directives Directive Response Recorded Date/Time Advance Directives No 06/22/16 9:35pm Health Care Power of Stock Broker Supervisor No 06/22/16 9:35pm Resuscitation Status Full Code 06/22/16 9:35pm Chief Complaint and Reason for Visit Chief Complaint A-FIB Z RVR Reason for Visit Atrial fibrillation with RVR Problems Active Problems Medical Problem Onset Date Status Atrial fibrillation with RVR Unknown Acute Medications Current Home Medications Medication Dose Units Route Directions Days/Qty Instructions Start Date Apixaban 5 Mg 5 Mg Oral Twice A Day 60 06/23/16 Diltiazem Hcl 300 Mg 300 Mg Oral Daily 30 06/23/16 Past Home Medications Medication Directions Ordered Status [Naprosyn] , 04/24/07 Discontinued [Cipro] , 09/17/07 Discontinued [Tuss] , 09/17/07 Discontinued [Tylenol] , 09/17/07 Discontinued [Breathing Tx] , 09/17/07 Discontinued Trimethoprim/Sulfamethoxazole 1 Ea Tablet, 1 Ea Oral Twice A Day 04/20/11 Discontinued Social History Social History Problem Response Recorded Date/Time Alcohol Use Occasionally Uses 06/22/2016 9:35pm Recreational Drug Use No 06/22/2016 9:35pm Recent Foreign Travel No 06/22/2016 9:36pm Recent Infectious Disease Exposure No 06/22/2016 9:36pm Smoking Status Former Smoker 06/22/2016 9:56pm Recent Hopitalizations No 06/22/2016 9:35pm Query Response Start Date Stop Date Smoking Status Former Smoker Hospital Discharge Instructions No hospital discharge instructions. Plan of Care Discharge Date 06/23/16 1:50pm Disposition 01 HOME, SELF-CARE Instructions/Education Provided Atrial Fibrillation (DC) Forms Provided PDI Medical Prescriptions See Medication Section Referrals (Unspecified) - Reason(s) for Referral: Follow up with Dr. Ruiz on June 30 at 2:30 p.m. (Unspecified) - Functional Status Query Response Date Recorded Patient Orientation Person Place Time Situation June 23, 2016 2:23pm Comprehension Ability Understands Concepts June 23, 2016 11:48am Allergies, Adverse Reactions, Alerts No known allergies. Immunizations Name Given Type FLU TRIvalent 5 years - Adult 06/23/16 Administered Vital Signs Acute Vital Signs Vital Response Date/Time Temperature (Fahrenheit) 96.6 degrees F (97.6 - 99.5) 06/23/2016 11:49am Temperature (Calculated Celsius) 35.91171 degrees C (36.4 - 37.5) 06/23/2016 11:49am Temperature Source Tympanic 06/23/2016 11:49am Pulse Rate (adult) 102 bpm (60 - 90) 06/23/2016 10:00am Respiratory Rate 24 bpm (12 - 24) 06/23/2016 10:00am O2 Sat by Pulse Oximetry 99 % (88 - 100) 06/23/2016 10:00am Blood Pressure 102/71 mm Hg 06/23/2016 9:00am Blood Pressure Mean 81 mm Hg 06/23/2016 9:00am Pain Numeric Pain Scale 0-No Pain 06/23/2016 12:00pm Pain Intensity 0 06/22/2016 7:44pm Height (Feet) 6 feet 06/22/2016 9:57pm Height (Inches) 3.00 inches 06/22/2016 9:57pm Height (Calculated Centimeters) 190.875521 cm 06/22/2016 9:57pm Weight (Pounds) 286 pounds 06/23/2016 6:00am Weight (Ounces) 0.0 oz 06/22/2016 9:57pm Weight (Calculated Grams) 240573.419 gm 06/23/2016 6:00am Weight (Calculated Kilograms) 129.312426 kilograms 06/23/2016 6:00am Calculated BMI 35.8 06/22/2016 9:57pm Capillary Refill Capillary Refill Less Than 3 Seconds 06/23/2016 4:00am Results Laboratory Results Test Name Result Units Flags Reference Collection Date/Time Result Date/ Time Comments White Blood Count 6.7 10^3/uL 4.3-11.0 06/23/2016 4:06/23/2016 5: 02am Red Blood Count 5.14 10^6/uL 4.35-5.85 06/23/2016 4:06/23/2016 5: 02am Hemoglobin 15.5 G/DL 13.3-17.7 06/23/2016 4:06/23/2016 5:02am Hematocrit 46 % 40-54 06/23/2016 4:06/23/2016 5:02am Mean Corpuscular Volume 89 FL 80-99 06/23/2016 4:06/23/2016 5: 02am Mean Corpuscular Hemoglobin 30 PG 25-34 06/23/2016 4:06/23/2016 5: 02am Mean Corpuscular Hemoglobin Concent 34 G/DL 32-36 06/23/2016 4: 5:02am Red Cell Distribution Width 12.6 % 10.0-14.5 06/23/2016 4:2016 5:02am Platelet Count 193 10^3/uL 130-400 06/23/2016 4:06/23/2016 5:02am Mean Platelet Volume 10.1 FL 7.4-10.4 06/23/2016 4:06/23/2016 5: 02am Neutrophils (%) (Auto) 46 % 42-75 06/23/2016 4:06/23/2016 5:02am Lymphocytes (%) (Auto) 38 % 12-44 06/23/2016 4:06/23/2016 5:02am Monocytes (%) (Auto) 10 % 0-12 06/23/2016 4:06/23/2016 5:02am Eosinophils (%) (Auto) 5 % 0-10 06/23/2016 4:06/23/2016 5:02am Basophils (%) (Auto) 0 % 0-10 06/23/2016 4:06/23/2016 5:02am Neutrophils # (Auto) 3.1 X 10^3 1.8-7.8 06/23/2016 4:06/23/2016 5: 02am Lymphocytes # (Auto) 2.6 X 10^3 1.0-4.0 06/23/2016 4:06/23/2016 5: 02am Monocytes # (Auto) 0.7 X 10^3 0.0-1.0 06/23/2016 4:06/23/2016 5: 02am Eosinophils # (Auto) 0.3 10^3/uL 0.0-0.3 06/23/2016 4:06/23/2016 5 :02am Basophils # (Auto) 0.0 10^3/uL 0.0-0.1 06/23/2016 4:06/23/2016 5: 02am Prothrombin Time 13.1 SEC 12.2-14.7 06/22/2016 7:35pm 06/22/2016 8: 16pm INR Comment 1.0 0.8-1.4 06/22/2016 7:35pm 06/22/2016 8:16pm INTERPRETIVE DATA SUGGESTED THERAPEUTIC RANGE FOR INR'S: VENOUS THROMBOSIS, PULMONARY EMBOLISM, OR PREVENTION OF SYSTEMIC EMBOLISM (EG. IN ATRIAL FIBRILLATION): 2.0 - 3.0 MECHANICAL PROSTHETIC HEART VALVES: 2.5 - 3.5* *NOTE: INR'S UP TO 4.5 MAY BE NECESSARY IN SELECTED GROUPS OF HIGH RISK PATIENTS. [employer] CONSENSUS CONFERENCE ON ANTITHROMBOTIC THERAPY (2000). Activated Partial Thromboplast Time 25 SEC 24-35 06/22/2016 7:35pm 8:16pm Sodium Level 140 MMOL/L 135-145 06/23/2016 4:06/23/2016 5:22am Potassium Level 4.1 MMOL/L 3.6-5.0 06/23/2016 4:06/23/2016 5:22am Chloride Level 109 MMOL/L H 98-107 06/23/2016 4:06/23/2016 5:22am Carbon Dioxide Level 24 MMOL/L 21-32 06/23/2016 4:06/23/2016 5: 22am Anion Gap 7 MMOL/L 5-14 06/23/2016 4:06/23/2016 5:22am Blood Urea Nitrogen 16 MG/DL 7-18 06/23/2016 4:06/23/2016 5:22am Creatinine 0.84 MG/DL 0.60-1.30 06/23/2016 4:06/23/2016 5:22am BUN/Creatinine Ratio 19 06/23/2016 4:06/23/2016 5:22am Estimat Glomerular Filtration Rate > 60 06/23/2016 4:2016 5:22am GFR INTERPRETIVE DATA UNITS FOR ESTIMATED GFR (eGFR): mL/min/1.73 M2 REFERENCE RANGE FOR ESTIMATED GFR (eGFR) eGFR NORMAL eGFR >60 MODERATELY DECREASED eGFR 30-59 SEVERLY DECREASED eGFR 15-29 KIDNEY FAILURE <15 (OR DIALYSIS) Glucose Level 103 MG/DL 70-105 06/23/2016 4:06/23/2016 5:22am Calcium Level 8.0 MG/DL L 8.5-10.1 06/23/2016 4:06/23/2016 5:22am Phosphorus Level 4.0 MG/DL 2.3-4.7 06/23/2016 4:06/23/2016 5:22am Magnesium Level 2.4 MG/DL 1.8-2.4 06/23/2016 4:06/23/2016 5:22am Total Bilirubin 0.4 MG/DL 0.1-1.0 06/23/2016 4:06/23/2016 5:22am Alkaline Phosphatase 64 U/L 40-136 06/23/2016 4:06/23/2016 5:22am Aspartate Amino Transf (AST/SGOT) 14 U/L 5-34 06/23/2016 4:2016 5:22am Alanine Aminotransferase (ALT/SGPT) 21 U/L 0-55 06/23/2016 4:29am 06/23 5:22am Troponin I < 0.30 NG/ML <0.30 06/22/2016 7:35pm 06/22/2016 8:32pm Myoglobin 44.3 NG/ML 10.0-92.0 06/22/2016 7:35pm 06/22/2016 8:32pm Total Protein 5.8 G/DL L 6.4-8.2 06/23/2016 4:29am 06/23/2016 5:22am Albumin 3.9 G/DL 3.2-4.5 06/23/2016 4:29am 06/23/2016 5:22am Triglycerides Level 104 MG/DL <150 06/23/2016 4:29am 06/23/2016 5:27am Cholesterol Level 150 MG/DL < 200 06/23/2016 4:29am 06/23/2016 5:27am HDL Cholesterol 30 MG/DL L 40-60 06/23/2016 4:29am 06/23/2016 5:27am LDL Cholesterol Direct 112 MG/DL 1-129 06/23/2016 4:29am 06/23/2016 5: 27am VLDL Cholesterol 21 MG/DL 5-40 06/23/2016 4:29am 06/23/2016 5:27am Procedures Procedure Status Date Provider(s) Tracing only of electrocardiogram Active 06/22/16 EDEN ALVAREZ MD Color Doppler echocardiography Active 06/23/16 ILIANA DYKES DO Tracing only of electrocardiogram Active 06/23/16 MARQUISE RUIZ MD FACP FAC CCDS Encounters Encounter Location Arrival/Admit Date Discharge/Depart Date Attending Provider Admitted Inpatient [facility] 06/22/16 8:45pm ILIANA DYKES DO Recent Diagnosis Atrial fibrillation with RVR
[2016-07-05] MEDS: CATHETER FLUSH 10 ML SYR IV PRN ×2 (12:10→13:23)
[2016-07-05 13:20] VITALS: BP 131/87
--- NOTE | 2016-07-07 08:20 | STRESS TEST ---
PROCEDURE PHYSICIAN: MARQUISE RUIZ DATE OF PROCEDURE: 07/05/2016 RESTING AND POST REGADENOSON TECHNETIUM 99M TETROFOSMIN SPECT CT IMAGING: ORDERING PHYSICIAN: Sarah Simpson APRN. PRIMARY PHYSICIAN: Dr. Whyte OTHER PHYSICIAN: Dr. Ruiz. CLINICAL DIAGNOSIS: 1. Exertional shortness of breath. 2. Paroxysmal atrial fibrillation. Baseline images were carried out after injection of 10.66 mCi technetium 99m tetrofosmin. This was followed by 0.4 mg of regadenoson and 30 mCi of technetium 99m tetrofosmin for stress imaging. The electrocardiogram showed sinus rhythm at baseline. There is incomplete right bundle branch block. There is nonspecific T-wave abnormality. The electrocardiogram did not change significantly with the Regadenoson infusion. Overall, the patient tolerated the procedure well. Review of images at rest and following stress, does not indicate any distinct perfusion defects consistent with significant myocardial ischemia or infarction. Gated images show normal regional wall motion. Left ventricular ejection fraction is calculated to be 57%. Left ventricular end diastolic volume is 115 mL. TID is absent (0.9). CONCLUSION: 1. No evidence of significant myocardial ischemia or infarction on this study. 2. Normal regional wall motion. 3. Normal global left ventricular systolic function with a calculated ejection of 57%. 4. Mild cardiomegaly. Job ID: [id number] Dictated Date: 07/06/2016 13:17:29 Riprap Worker Date: 07/07/2016 08:16:24 / ricki
== END ==
LOC: CARD 10:46
PROVIDERS: ATTEND Nurse Practitioner Family
DX: I48.0 Paroxysmal atrial fibrillation (principal); I34.0 Nonrheumatic mitral (valve) insufficiency; R06.09 Other forms of dyspnea; Z79.01 Long term (current) use of anticoagulants
CPT/HCPCS: 78452; 93017

== ENCOUNTER 2016-08-12 01:11 | Emergency (ER) | payer BC ==
[~2016-08-12] VITALS: Ht 190.5 cm; Wt 127.0 kg
[~2016-08-12 01:11] MED LIST changes: -ALPR0.25 PO; -ASPI-586 PO; -BUSP5TAB59 PO; -CEFD300C3 PO; -REGADENOSON 0.4 MG/5 ML SYR (LEXISCAN) IV ONE; -TRAZ-28 PO
--- OUTSIDE RECORDS SUMMARY | 2016-08-12 01:18 | XMS REPORT | Continuity of Care Document ---
Author Author [facility] Organization [facility] Address Unknown Phone Unavailable Care Team Providers Care Meter Readers Supervisor Name Role Phone ILIANA DYKES DO PCP Insurance Providers Payer Name Policy Number Subscriber Name Relationship [facility] [id number] Jocelyn Beck 01 Advance Directives Directive Response Recorded Date/Time Advance Directives No 06/22/16 9:35pm Health Care Power of Health Physics Technician No 06/22/16 9:35pm Resuscitation Status Full Code [...] - 99.5) 06/23/2016 11:49am Temperature (Calculated Celsius) 35.75368 degrees C (36.4 - 37.5) 06/23/2016 11:49am [...] 3.00 inches 06/22/2016 9:57pm Height (Calculated Centimeters) 190.161613 cm 06/22/2016 9:57pm Weight (Pounds) 286 pounds 06/23/2016 6:00am Weight (Ounces) 0.0 oz 06/22/2016 9:57pm Weight (Calculated Grams) 695543.419 gm 06/23/2016 6:00am Weight (Calculated Kilograms) 129.398400 kilograms 06/23/2016 6:00am Calculated BMI 35.8 06/22/2016 [...] SELECTED GROUPS OF HIGH RISK PATIENTS. [employer] CONSENSUS CONFERENCE ON [...] Discharge/Depart Date Attending Provider Admitted Inpatient [facility] 06/22/16 8:45pm ILIANA DYKES DO Recent Diagnosis Atrial fibrillation with RVR
[2016-08-12] MEDS ORDERED: ALPR0.25 PO (01:38)
[2016-08-12] MEDS ORDERED: ASPI-586 PO (01:38)
[2016-08-12] MEDS ORDERED: BUSP5TAB59 PO (01:38)
[2016-08-12] MEDS ORDERED: CEFD300C3 PO (01:38)
--- NOTE | 2016-08-12 01:51 | ED General ---
General Chief Complaint: Psych/Social Disorder Stated Complaint: ANXIETY,CAN'T SLEEP Nursing Triage Note: C/O ANXIETY/DIFFICULTY SLEEPING X2 YRS. RECENTLY STARTED ON BUSPAR X2 DAYS (STOPPED TAKING), XANAX PRESCRIBED TODAY, PT DIDNT TAKE. Nursing Sepsis Screen: No Definite Risk Source of Information: Patient, Family Exam Limitations: No Limitations History of Present Illness Time Seen by Provider: 01:26 Initial Comments Here with report of anxiety and difficulty sleeping. This is been worsening over the last 2 months but he has had problems with it for some time. His primary care provider started him on BuSpar and he tried it for 2 days but stopped because it made him feel so bad. He is also currently on Omnicef for bronchitis. He was seen at [facility] urgent care and initiated on Xanax when necessary until he can get in with his provider. He did not take any of that tonight though because he was not sure about taking any medicines for this and he did not want to cover cover up any medical problems. He states that he can lay down and as long as the lights are on he will be able to close his eyes but doesn't really sleep. He states he doesn't really know when he slept much at all for a while. He has had difficulties due to his 's health and due to his health. He had a bout of atrial fibrillation with rapid ventricular response in May. His was admitted to the hospital in the ICU and was on a ventilator in April of last year. He states that when he lays down and turns off a light that he will panic and has to stand up and walk around the lights on the get settled down. He then is able to lay back down and has to leave the lights on. He admits that he is panicking. Denies chest pain, breathing problems, weakness, nausea, vomiting or other concerns. Timing/Duration: 1 Week, Changing Over Time, Getting Worse, Intermittent Severity: Moderate Associated Systoms: No Chest Pain, No Fever/Chills, No Nausea/Vomiting, No Shortness of Air, No Weakness Allergies and Home Medications Allergies Coded Allergies: No Known Drug Allergies (Verified , 04/24/07) Home Medications Alprazolam 0.25 Mg Tablet 0.25 MG PO UD (Reported) Aspirin 81 Mg Tablet.dr 81 MG PO PRN (Reported) Buspirone HCl 5 Mg Tablet Unknown Dose PO UD (Reported) Cefdinir 300 Mg Capsule 300 MG PO BID (Reported) Diltiazem HCl 300 Mg Cap.er.24h #30 300 MG PO DAILY Prescribed by: ALY LEE on 06/23/16 1315 Trazodone HCl 50 Mg Tablet #15 50 MG PO HS PRN PRN INSOMNIA Prescribed by: EDEN ALVAREZ on 08/12/16 0454 Constitutional: see HPINo chills, No fever EENTM: no symptoms reported Respiratory: no symptoms reported Cardiovascular: No chest pain, palpitations Gastrointestinal: no symptoms reported Genitourinary: no symptoms reported Musculoskeletal: no symptoms reported Skin: no symptoms reported Psychiatric/Neurological: See HPI AnxietyDenies Weakness All Other Systems Reviewed Negative Unless Noted: Yes Past Sycqlzk-Rqxyah-Ciqlqg Hx Patient Social History Alcohol Use: Occasionally Uses Recreational Drug Use: No Smoking Status: Former Smoker Recent Foreign Travel: No Contact w/Someone Who Travel: No Recent Infectious Disease Expo: No Recent Hopitalizations: No Immunizations Up To Date Tetanus Booster (TDap): Unknown Seasonal Allergies Seasonal Allergies: No Surgeries HX Surgeries: Yes Surgeries: Adenoidectomy, Orthopedic Respiratory Hx Respiratory Disorders: No Cardiovascular Hx Cardiac Disorders: Yes Cardiac Disorders: Atrial Fibrillation Neurological Hx Neurological Disorders: No Reproductive System Hx Reproductive Disorders: No Genitourinary Hx Genitourinary Disorders: No Gastrointestinal Hx Gastrointestinal Disorders: No Musculoskeletal Hx Musculoskeletal Disorders: Yes (BACK PAIN,SPASMS) Musculoskeletal Disorders: Arthritis Endocrine Hx Endocrine Disorders: No HEENT HX ENT Disorders: No Cancer Hx Cancer: No Psychosocial Hx Psychiatric Problems: No Integumentary HX Skin/Integumentary Disorder: No Blood Transfusions Hx Blood Disorders: No Reviewed Nursing Assessment Reviewed/Agree w Nursing PMH: Yes Family Medical History Significant Family History: No Pertinent Family Hx Family Medial History: Hypertension 19 MOTHER Physical Exam Vital Signs Vital Sign - Last 12Hours 08/12/16 01:39 Temp 98.7 Pulse 73 Resp 18 B/P 129/85 Pulse Ox 94 O2 Delivery Room Air Capillary Refill : Less Than 3 Seconds General Appearance: No Apparent Distress WD/WN HEENT: PERRL/EOMI Pharynx Normal Neck: Non Tender Supple Respiratory: Lungs Clear Normal Breath Sounds Cardiovascular: Regular Rate, Rhythm No Murmur Gastrointestinal: Non Tender Soft Back: Normal Inspection No CVA Tenderness No Vertebral Tenderness Extremity: Non Tender No Calf Tenderness Neurologic/Psychiatric: Alert Oriented x3 Skin: Normal Color Warm/Dry Progress/Results/Core Measures Results/Orders My Orders Orders-EDEN ALVAREZ MD Trazodone Tablet (Desyrel Tablet) (08/12/16 03:00) Medications Given in ED Current Medications Medications Dose Ordered Sig/Yudi Route Start Time Stop Time Status Last Admin Dose Admin Trazodone HCl 50 mg ONCE ONCE PO 08/12/16 03:00 08/12/16 03:01 DC 08/12/16 03:11 50 MG Vital Signs/I&O Vital Sign - Last 12Hours 08/12/16 08/12/16 08/12/16 01:39 02:39 04:00 Temp 98.7 Pulse 73 60 66 Resp 18 16 16 B/P 129/85 142/82 147/89 Pulse Ox 94 98 96 O2 Delivery Room Air Room Air Room Air Blood Pressure Mean: 100 Progress Note : Progress Note Seen and evaluated. Physical exam is benign. I did discuss different options with the patient. 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 We will forego labs and other evaluation now but I will have him try one of his Xanax while he is monitored here to see how he does and also provide comfort for the patient that he is starting this medicine in a monitored environment. He did take 0.5 mg Xanax from his own prescription under my direction. We will monitor him for adverse effect. 0300: He is still having some anxiety issues when trying to rest. Trazodone 50 mg by mouth given. 0450: Patient states that the second medicine seemed to work very well he is actually able to go to sleep for a while and not have the anxiety reaction. I will prescribe short course of that and he was instructed to follow-up with his doctor. Discharged home with return precautions. Patient verbalize understanding instructions and agreement with plan. Departure Impression Impression: Primary Impression: Anxiety Additional Impression: Insomnia Qualified Code: G47.01 - Insomnia due to medical condition Disposition: HOME, SELF-CARE Condition: Improved Departure-Patient Inst. Decision time for Depature: 04:53 Referrals: ILIANA DYKES DO (PCP/Family) Primary Care Physician Patient Instructions: Insomnia (DC), Panic Disorder (DC) Add. Discharge Instructions: All discharge instructions reviewed with patient and/or family. Voiced understanding. Take medications as directed. Call Dr. Dykes's office today for recheck and further evaluation. Return for worse pain, fever, vomiting, weakness, breathing problems or other concerns as needed. Scripts Trazodone HCl 50 Mg Kssmlg19 Mg PO HS PRN INSOMNIA #15 TAB Ref 0 Prov:EDEN ALVAREZ MD 08/12/16 Copy Copies To 1: ILIANA DYKES TIMOTHY D MD Aug 12, 2016 01:51 EDEN ALVAREZ MD Aug 12, 2016 01:51
[2016-08-12 02:39] VITALS: BP 142/82
[2016-08-12] MEDS ORDERED: traZODone 50 MG (DESYREL) TAB PO ONE (03:00)
[2016-08-12 04:00] VITALS: BP 147/89
[2016-08-12] MEDS ORDERED: TRAZ-28 PO (04:54)
[2016-08-12 04:59] VITALS: BP 134/88
== END 2016-08-12 04:57 | disposition home or self-care (01) ==
LOC: EDUNIT# 01:11 → ER 01:14
DX: F41.9 Anxiety disorder, unspecified (principal); G47.00 Insomnia, unspecified; Z79.899 Other long term (current) drug therapy; Z79.82 Long term (current) use of aspirin
CPT/HCPCS: 99283

== ENCOUNTER 2016-08-15 20:00 | Outpatient (CLI) | payer BC ==
[~2016-08-15 20:00] MED LIST changes: +ALPR0.25 PO; +ASPI-586 PO; +BUSP5TAB59 PO; +CEFD300C3 PO; +TRAZ-28 PO
--- OUTSIDE RECORDS SUMMARY | 2016-08-15 20:04 | XMS REPORT | Continuity of Care Document ---
Author Author [facility] Organization [facility] Address Unknown Phone Unavailable Care Team Providers Care Muff Winder Name Role Phone DESIREESHILA ILIANA Gutierrez DO PCP Insurance Providers Payer Name Policy Number Subscriber Name Relationship [facility] [id number] Jocelyn Beck 01 Advance Directives Directive Response Recorded Date/Time Advance Directives No 08/12/16 1:39am Health Care Power of Rn Birthing No 08/12/16 1:39am Resuscitation Status Full Code 08/12/16 1:39am Chief Complaint and Reason for Visit Chief Complaint Psych/Social Disorder Reason for Visit Insomnia Anxiety Problems Active Problems Medical Problem Onset Date Status Anxiety Unknown Acute Atrial fibrillation with RVR Unknown Acute Insomnia Unknown Acute Medications Current Home Medications Medication Dose Units Route Directions Days/Qty Instructions Start Date Diltiazem Hcl 300 Mg 300 Mg Oral Daily 30 06/23/16 Buspirone Hcl 5 Mg Unknown Dose Oral As Directed 08/12/16 Aspirin 81 Mg 81 Mg Oral As Needed 08/12/16 Cefdinir (Omnicef) 300 Mg 300 Mg Oral Twice A Day 08/12/16 Alprazolam 0.25 Mg 0.25 Mg Oral As Directed 08/12/16 Trazodone Hcl 50 Mg 50 Mg Oral Bedtime as needed for Insomnia 15 08/12 Past Home Medications Medication Directions Ordered Status [Naprosyn] , 04/24/07 Discontinued [Cipro] , 09/17/07 Discontinued [Tuss] , 09/17/07 Discontinued [Tylenol] , 09/17/07 Discontinued [Breathing Tx] , 09/17/07 Discontinued Trimethoprim/Sulfamethoxazole 1 Ea Tablet, 1 Ea Oral Twice A Day 04/20/11 Discontinued Apixaban 5 Mg Tablet, 5 Mg Oral Twice A Day 06/23/16 Discontinued Social History Social History Problem Response Recorded Date/Time Alcohol Use Occasionally Uses 08/12/2016 1:39am Recreational Drug Use No 08/12/2016 1:39am Recent Foreign Travel No 08/12/2016 1:39am Recent Infectious Disease Exposure No 08/12/2016 1:39am Hospitalization with Isolation Denies 08/12/2016 1:39am Smoking Status Former Smoker 08/12/2016 1:39am Recent Hopitalizations No 08/12/2016 1:39am Hospitalization with Isolation Denies 08/12/2016 1:39am Query Response Start Date Stop Date Smoking Status Former Smoker Hospital Discharge Instructions No hospital discharge instructions. Plan of Care Discharge Date 08/12/16 4:57am Disposition 01 HOME, SELF-CARE Condition at Discharge Improved Instructions/Education Provided Panic Disorder (DC) Insomnia (DC) Prescriptions See Medication Section Referrals ILIANA WHYTE DO - Primary Care Physician Additional Instructions/Education All discharge instructions reviewed with patient and/or family. Voiced understanding. Take medications as directed. Call Dr. Whyte's office today for recheck and further evaluation. Return for worse pain, fever, vomiting, weakness, breathing problems or other concerns as needed. Functional Status No functional status results. Allergies, Adverse Reactions, Alerts No known allergies. Immunizations No immunization records. Vital Signs Acute Vital Signs Vital Response Date/Time Temperature (Fahrenheit) 98.7 degrees F (97.6 - 99.5) 08/12/2016 1:39am Temperature (Calculated Celsius) 37.46705 degrees C (36.4 - 37.5) 08/12/2016 1:39am Temperature Source Temporal 08/12/2016 1:39am Pulse Rate (adult) 66 bpm (60 - 90) 08/12/2016 4:00am Respiratory Rate 16 bpm (12 - 24) 08/12/2016 4:00am O2 Sat by Pulse Oximetry 96 % (88 - 100) 08/12/2016 4:00am Blood Pressure 147/89 mm Hg 08/12/2016 4:00am Blood Pressure Mean 108 mm Hg 08/12/2016 4:00am Pain Numeric Pain Scale 0-No Pain 08/12/2016 1:39am Height (Feet) 6 feet 08/12/2016 1:39am Height (Inches) 3 inches 08/12/2016 1:39am Height (Calculated Centimeters) 190.729576 cm 08/12/2016 1:39am Weight (Pounds) 280 pounds 08/12/2016 1:39am Weight (Calculated Kilograms) 127.694428 kilograms 08/12/2016 1:39am Capillary Refill Capillary Refill Less Than 3 Seconds 08/12/2016 4:00am Height 6 ft 3 in Weight 280 lb Body Mass Index 35.0 kg/m^2 Results No known relevant diagnostic tests, laboratory data and/or discharge summary. Procedures No known history of procedures. Encounters Encounter Location Arrival/Admit Date Discharge/Depart Date Attending Provider Registered Emergency Room [facility] 08/12/16 1:14am EDEN ALVAREZ MD Recent Diagnosis
== END 2016-08-16 06:40 | disposition home or self-care (01) ==
LOC: SLEEP 20:00
PROVIDERS: ATTEND Internal Medicine Critical Care Medicine
DX: G47.33 Obstructive sleep apnea (adult) (pediatric) (principal)
CPT/HCPCS: 95811

== ENCOUNTER 2017-04-11 23:12 | Inpatient (IN) | payer BC ==
[~2017-04-11] VITALS: Ht 190.5 cm; Wt 133.4 kg
[2017-04-11] MEDS ORDERED: ADENOSINE 6 MG/2 ML (ADENOCARD) VIAL IV ONE ×3 (23:20→23:45)
[2017-04-11] MEDS ORDERED: NS IV 1000 ML 1,000 ML ONE (23:20)
[2017-04-11] MEDS ORDERED: NS IV 1000 ML 1,000 ML IV ONE (23:28)
[2017-04-11] MEDS ORDERED: DILTIAZEM 25 MG/5 ML INJ (CARDIZEM) VIAL ONE (23:29)
[2017-04-11] MEDS ORDERED: DILTIAZEM 100 MG/VIAL (CARDIZEM) ADD-VANTAGE IV ONE (23:30)
[2017-04-11] MEDS ORDERED: SODIUM CHLORIDE (ADD-VANTAGE) 100 ML IV ONE (23:30)
[2017-04-11 23:38] LABS: BASOPHILS % (AUTO) 0 % (0-10); EOSINOPHILS # (AUTO) 0.3 10^3/uL (0.0-0.3); EOSINOPHILS % (AUTO) 4 % (0-10); LYMPHOCYTES # (AUTO) 3.5 X 10^3 (1.0-4.0); LYMPHOCYTES % (AUTO) 38 % (12-44); MEAN CORPUSCULAR HEMOGLOBIN 30 PG (25-34); MEAN CORPUSCULAR HGB CONC 35 G/DL (32-36); MEAN CORPUSCULAR VOLUME 87 FL (80-99); MEAN PLATELET VOLUME 9.8 FL (7.4-10.4); MONOCYTES # (AUTO) 1.2 X 10^3 (0.0-1.0); MONOCYTES % (AUTO) 13 % (0-12); NEUTROPHILS # (AUTO) 4.2 X 10^3 (1.8-7.8); NEUTROPHILS % (AUTO) 45 % (42-75); PLATELET COUNT 214 10^3/uL (130-400); RED BLOOD COUNT 6.14 10^6/uL (4.35-5.85); RED CELL DISTRIBUTION WIDTH 13.1 % (10.0-14.5); WHITE BLOOD COUNT 9.3 10^3/uL (4.3-11.0)
--- NOTE | 2017-04-11 23:43 | ED Cardiac General ---
History of Present Illness General Stated Complaint: A-FIB Source: patient, spouse Exam Limitations: no limitations History of Present Illness Time seen by provider: 23:20 Initial Comments Patient present to ER by private conveyance with his after waking up from a nap this afternoon about 4:00 experiencing some sweats and palpitations. No chest pain, shortness of breath, cough, nausea, jaw or arm paresthesias or pain. He says he just visited his primary care physician Dr. Whyte today and was given a otherwise clean bill of health. He doesn't history of atrial fibrillation for which he was exposed to be on Cardizem but he has not taken that medication in several months after being prescribed by Dr. Kaiser, cardiology. Patient denies any history of heart catheter, SD, he quit smoking a few years ago. He has no thyroid disorder, hypercholesterolemia or hypertension. Allergies and Home Medications Allergies Coded Allergies: No Known Drug Allergies (Verified , 04/24/07) Home Medications Alprazolam 0.25 Mg Tablet, 0.25 MG PO UD, (Reported) Aspirin 81 Mg Tablet.dr, 81 MG PO PRN, (Reported) Buspirone HCl 5 Mg Tablet, Unknown Dose PO UD, (Reported) Diltiazem HCl 300 Mg Cap.er.24h, 300 MG PO DAILY, #30 Ref 5 Prescribed by: ALY LEE on 06/23/16 1315 Trazodone HCl 50 Mg Tablet, 50 MG PO HS PRN for INSOMNIA, #15 Ref 0 Prescribed by: EDEN ALVAREZ on 08/12/16 0454 [Testosterone Inj] , (Reported) Review of Systems Constitutional: No chills, No diaphoresis EENTM: No Blurred Vision, No Double Vision Respiratory: Denies Cough, Denies Shortness of Air Cardiovascular: Denies Chest Pain, Denies Edema, Irregular Heart Rate, Denies Lightheadedness, Palpitations, Denies Syncope Gastrointestinal: Denies Abdomen Distended, Denies Abdominal Pain, Denies Constipated, Denies Diarrhea, Denies Nausea Genitourinary: Denies Burning, Denies Discharge Musculoskeletal: No back pain, No joint pain Skin: No pruritus, No rash Psychiatric/Neurological: Denies Headache, Denies Numbness, Denies Paresthesia Past Lfafkba-Prxyck-Aobubi Hx Patient Social History Alcohol Use: Occasionally Uses Alcohol Beverage of Choice: Beer Recreational Drug Use: No Smoking Status: Former Smoker Type Used: Cigarettes (quit 1982) Recent Foreign Travel: No Contact w/Someone Who Travel: No Recent Hopitalizations: No Immunizations Up To Date Tetanus Booster (TDap): Unknown Seasonal Allergies Seasonal Allergies: No Surgeries History of Surgeries: Yes (APPY,T&A,LEFT SHOULDER REPAIR) Surgeries: Adenoidectomy, Orthopedic Respiratory History of Respiratory Disorde: No Cardiovascular History of Cardiac Disorders: No Cardiac Disorders: Atrial Fibrillation Neurological History of Neurological Disord: No Reproductive System Hx Reproductive Disorders: No Gastrointestinal History of Gastrointestinal Di: No Musculoskeletal History of Musculoskeletal Dis: Yes (BACK PAIN,SPASMS) Musculoskeletal Disorders: Arthritis Endocrine History of Endocrine Disorders: No Psychosocial History of Psychiatric Problem: No Blood Transfusions History of Blood Disorders: No Family Medical History Significant Family History: No Pertinent Family Hx Family Medial History: Hypertension 19 MOTHER Physical Exam Vital Signs Vital Sign - Last 12Hours 04/11/17 23:15 Temp 97.1 Pulse 144 Resp 14 B/P (MAP) 118/97 Pulse Ox 93 O2 Delivery Room Air Capillary Refill : General Appearance: No Apparent Distress, WD/WN HEENT: PERRL/EOMI, Pharynx Normal Neck: Full Range of Motion, Normal Inspection, Non Tender, Supple Respiratory: Chest Non Tender, Lungs Clear, Normal Breath Sounds Cardiovascular: No Edema, No JVD, No Murmur, Irregularly Irregular Gastrointestinal: Normal Bowel Sounds, Non Tender, Soft Extremity: Normal Capillary Refill, Normal Inspection, Non Tender, No Calf Tenderness, No Pedal Edema Neurologic/Psychiatric: Alert, Oriented x3, Normal Mood/Affect Skin: Normal Color, Warm/Dry Progress/Results/Core Measures Results/Orders Lab Results Laboratory Tests Test 04/11/17 23:20 Range/Units White Blood Count 9.3 4.3-11.0 10^3/uL Red Blood Count 6.14 H 4.35-5.85 10^6/uL Hemoglobin 18.5 H 13.3-17.7 G/DL Hematocrit 53 40-54 % Mean Corpuscular Volume 87 80-99 FL Mean Corpuscular Hemoglobin 30 25-34 PG Mean Corpuscular Hemoglobin Concent 35 32-36 G/DL Red Cell Distribution Width 13.1 10.0-14.5 % Platelet Count 214 130-400 10^3/uL Mean Platelet Volume 9.8 7.4-10.4 FL Neutrophils (%) (Auto) 45 42-75 % Lymphocytes (%) (Auto) 38 12-44 % Monocytes (%) (Auto) 13 H 0-12 % Eosinophils (%) (Auto) 4 0-10 % Basophils (%) (Auto) 0 0-10 % Neutrophils # (Auto) 4.2 1.8-7.8 X 10^3 Lymphocytes # (Auto) 3.5 1.0-4.0 X 10^3 Monocytes # (Auto) 1.2 H 0.0-1.0 X 10^3 Eosinophils # (Auto) 0.3 0.0-0.3 10^3/uL Basophils # (Auto) 0.0 0.0-0.1 10^3/uL Prothrombin Time 12.7 12.2-14.7 SEC INR Comment 0.9 0.8-1.4 Activated Partial Thromboplast Time 27 24-35 SEC Myoglobin 53.1 10.0-92.0 NG/ML Troponin I < 0.30 <0.30 NG/ML Thyroid Stimulating Hormone (TSH) 4.84 0.35-4.94 UIU/ML My Orders Orders - LONI DEVINE Adenosine Injection (Adenocard Injection (04/11/17 23:30) Thyroid Stimulating Hormone (04/11/17 23:28) Cbc With Automated Diff (04/11/17:) Magnesium (04/11/17 23:28) Ekg Tracing (04/11/17 23:28) Cardiac Profile 1 (04/11/17 23:) Comprehensive Metabolic Panel (04/11/17:) Myoglobin Serum (04/11/17:) Protime With Inr (04/11/17:) Partial Thromboplastin Time (04/11/17:) O2 (04/11/17:) Monitor-Rhythm Ecg Trace Only (04/11/17:) Lipid Panel (04/12/17 06:00) Saline Lock/Iv-Start (04/11/17 23:28) Saline Lock/Iv-Start (04/11/17 23:28) Ns Iv 1000 Ml (Sodium Chloride 0.9%) (04/11/17 23:28) Adenosine Injection (Adenocard Injection (04/11/17 23:20) Ns Iv 1000 Ml (Sodium Chloride 0.9%) (04/11/17 23:20) Adenosine Injection (Adenocard Injection (04/11/17 23:45) Diltiazem Injection (Cardizem Injection) (04/11/17 23:45) Sodium Chloride (Ad... W/Diltiazem Drip (04/11/17 23:45) Diltiazem Injection (Cardizem Injection) (04/11/17 23:29) Sodium Chloride (Add-Randlett) (Ns (Add-V (04/11/17 23:30) Diltiazem Drip (Cardizem Drip) (04/11/17 23:30) Chest 1 View, Ap/Pa Only (04/12/17 00:01) Enoxaparin Injection (Lovenox Injection) (04/12/17 00:15) Medications Given in ED Current Medications Medications Dose Ordered Sig/Yudi Route Start Time Stop Time Status Last Admin Dose Admin Adenosine 6 mg ONCE ONCE IV 04/11/17 23:30 04/11/17 23:31 DC 04/11/17 23:30 6 MG Adenosine 12 mg ONCE ONCE IV 04/11/17 23:45 04/11/17 23:46 DC 04/11/17 23:35 12 MG Diltiazem HCl 10 mg ONCE ONCE IVP 04/11/17 23:45 04/11/17 23:46 DC 04/11/17 23:40 10 MG Enoxaparin Sodium 140 mg ONCE ONCE SC 04/12/17 00:15 04/12/17 00:16 DC 04/12/17 00:57 140 MG Sodium Chloride 1,000 ml @ 0 mls/hr Q0M ONCE IV 04/11/17 23:28 04/11/17 23:30 DC 04/11/17 23:40 999 MLS/HR Vital Signs/I&O Vital Sign - Last 12Hours 04/11/17 04/11/17 23:15 23:42 Temp 97.1 96.9 Pulse 144 115 Resp 14 24 B/P (MAP) 118/97 133/87 Pulse Ox 93 100 O2 Delivery Room Air Progress Note #1: Time: 23:42 Progress Note Patient failed to convert with the 10 a card 6 mg followed by 12 mg. He did slow down but shows no P waves. This is consistent with atrial fibrillation and rapid ventricular response. He has narrow QRS complexes. Progress Note #2: Time: 01:56 Progress Note Patient is resting comfortably with good vital signs and no chest pain. His heart rate is still in the 80s with atrial fibrillation. I'm informed that chemistry lab is not going to be available for several hours due to a problem with the machine. We'll go ahead and allow him to transition to the ICU and have the inpatient team follow his initial chemistry labs. ECG Initial ECG Impression Date: Apr 11, 2017 Initial ECG Impression Time: 23:22 Initial ECG Rate: 156 Initial ECG Rhythm: A Fib/Flutter Initial ECG Intervals: QRS (90) Initial ECG Impression: Atrial Fibrillation w/RVR Comment History of fibrillation with rapid ventricular response and no T-wave elevation or depression noted. Diagnostic Imaging Diagonstic Imaging: Xray Plain Films/CT/US/NM/MRI: chest Reviewed: Reviewed by Me Departure Communication (Admissions) Time/Spoke to Admitting Phy: 00:[address] Whyte and discussed the case lab and imaging and findings and plan to put the patient in ICU on Lovenox and Cardizem drip and see Dr. Kaiser in the morning. She is okay with this. Time/Spoke to Consulting Phy: 00:03 Communication/Consulting Corie: Discussed case imaging and findings and discussing use. He is okay with anticoagulation, Cardizem drip and recommends we consult Dr. Kaiser in the morning. Impression Impression: Primary Impression: Atrial fibrillation with RVR Disposition: ADMITTED INPATIENT Condition: Stable Admissions Decision to Admit Reason: Admit from ER (General) Decision to Admit/Date: Apr 11, 2017 Time/Decision to Admit Time: 23:43 Departure-Patient Inst. Referrals: ILIANA WHYTE DO (PCP/Family) Primary Care Physician Copy Copies To 1: ILIANA WHYTE DO Copies To 2: MARQUISE PLATA MD FACP FAC CCDS; Maria De Jesus CORDOVA MD, TITUS J Apr 11, 2017 23:43
[2017-04-11] MEDS ORDERED: DILTIAZEM DRIP 100 MG in SODIUM CHLORIDE (ADD-VANTAGE) 100 ML IV SCH (23:45)
[2017-04-11] MEDS ORDERED: DILTIAZEM 25 MG/5 ML INJ (CARDIZEM) VIAL IVP ONE (23:45)
[2017-04-11 23:55] LABS: INR 0.9 (0.8-1.4); PROTHROMBIN TIME PATIENT 12.7 SEC (12.2-14.7)
[2017-04-12] VITALS (36 sets, daily range): BP systolic 90–166; BP diastolic 59–114
[2017-04-12] MEDS ORDERED: ENOXAPARIN 60 MG/0.6 ML (LOVENOX) SYR SC ONE (00:15)
[2017-04-12] MEDS ORDERED: ENOXAPARIN 80 MG/0.8 ML (LOVENOX) SYR ONE (00:47)
[2017-04-12] MEDS ORDERED: TESTOSTERONE INJ (01:41)
[2017-04-12 01:47] LABS: MYOGLOBIN SERUM 53.1 NG/ML (10.0-92.0)
[2017-04-12 03:04] LABS: ALANINE AMINOTRANSFERASE 26 U/L (0-55); ALBUMIN 4.1 GM/DL (3.2-4.5); ANION GAP 15 MMOL/L (5-14); ASPARTATE AMINO TRANSFERASE 21 U/L (5-34); BILIRUBIN,TOTAL 0.5 MG/DL (0.1-1.0); BLOOD UREA NITROGEN 14 MG/DL (7-18); BUN/CREATININE RATIO 15; CARBON DIOXIDE 20 MMOL/L (21-32); CHLORIDE 105 MMOL/L (98-107); CREATININE SERUM 0.94 MG/DL (0.60-1.30); GFR ESTIMATED > 60; GLUCOSE 122 MG/DL (70-105); MAGNESIUM 2.5 MG/DL (1.8-2.4); POTASSIUM 3.9 MMOL/L (3.6-5.0); SODIUM 140 MMOL/L (135-145); TOTAL PROTEIN 7.1 GM/DL (6.4-8.2)
[2017-04-12] MEDS ORDERED: NS IV 1000 ML 1,000 ML ONE (04:38)
[2017-04-12] MEDS ORDERED: NS IV 1000 ML 1,000 ML IV SCH (04:45)
[2017-04-12] MEDS ORDERED: morphine INJ 10 MG/ML 1ML (SYR OR VIAL) IVP PRN (05:00)
[2017-04-12] MEDS ORDERED: ONDANSETRON 4 MG/2 ML (SDV) Z0FRAN IVP PRN (05:00)
[2017-04-12] MEDS ORDERED: ACETAMINOPHEN 500 MG TAB (TYLENOL) PO PRN (05:00)
[2017-04-12 05:04] LABS: BASOPHILS % (AUTO) 0 % (0-10); EOSINOPHILS # (AUTO) 0.2 10^3/uL (0.0-0.3); EOSINOPHILS % (AUTO) 3 % (0-10); LYMPHOCYTES # (AUTO) 2.8 X 10^3 (1.0-4.0); LYMPHOCYTES % (AUTO) 41 % (12-44); MEAN CORPUSCULAR HEMOGLOBIN 30 PG (25-34); MEAN CORPUSCULAR HGB CONC 34 G/DL (32-36); MEAN CORPUSCULAR VOLUME 88 FL (80-99); MEAN PLATELET VOLUME 9.8 FL (7.4-10.4); MONOCYTES # (AUTO) 0.8 X 10^3 (0.0-1.0); MONOCYTES % (AUTO) 11 % (0-12); NEUTROPHILS % (AUTO) 44 % (42-75); PLATELET COUNT 213 10^3/uL (130-400); RED BLOOD COUNT 5.84 10^6/uL (4.35-5.85); RED CELL DISTRIBUTION WIDTH 13.1 % (10.0-14.5); WHITE BLOOD COUNT 6.8 10^3/uL (4.3-11.0)
[2017-04-12 05:32] LABS: ANION GAP 9 MMOL/L (5-14); BLOOD UREA NITROGEN 13 MG/DL (7-18); BUN/CREATININE RATIO 13; CALCIUM 8.5 MG/DL (8.5-10.1); CARBON DIOXIDE 28 MMOL/L (21-32); CHLORIDE 105 MMOL/L (98-107); CREATININE SERUM 1.04 MG/DL (0.60-1.30); GFR ESTIMATED > 60; GLUCOSE 107 MG/DL (70-105); MAGNESIUM 2.1 MG/DL (1.8-2.4); POTASSIUM 4.2 MMOL/L (3.6-5.0); SODIUM 142 MMOL/L (135-145)
[2017-04-12 05:45] LABS: TROPONIN I < 0.30 NG/ML (<0.30)
[2017-04-12 05:46] LABS: CHOLESTEROL 155 MG/DL (< 200); DIRECT LDL 116 MG/DL (1-129); TRIGLYCERIDES 131 MG/DL (<150); VLDL CHOLESTEROL 26 MG/DL (5-40)
[2017-04-12] MEDS ORDERED: ENOXAPARIN 60 MG/0.6 ML (LOVENOX) SYR SC SCH ×2 (06:00→12:00)
[2017-04-12] MEDS ORDERED: NITROGLYCERIN 0.4 MG SL TABS BTL 25'S SL PRN (06:15)
[2017-04-12] MEDS: MAGNESIUM 1 GM/100 ML IVPB 100 ML IV SCH (06:55)
[2017-04-12] MEDS: POTASSIUM CL 10MEQ/50ML IVPB 50 ML IV SCH (06:55)
[2017-04-12] MEDS: KCL 20 MEQ TAB (K-DUR) PO SCH (06:55)
--- NOTE | 2017-04-12 07:53 | Diagnostic Imaging Report ---
INDICATION: Atrial fib. Comparison with 06/23/2016. FINDINGS: The lungs are well-aerated and clear. Heart is upper limits of normal. Pulmonary vasculature is normal. No pneumothorax or pleural effusion. IMPRESSION: No acute abnormality. Dictated by: Dictated on workstation # [id number]
[2017-04-12] MEDS: DILTIAZEM DRIP 100 MG/NS 100 ML IV SCH ×2 (08:30)
[2017-04-12] MEDS ORDERED: INFLUENZA TRIvalent 2017-2018 0.5 ML/45 MCG SYR IM ONE (08:45)
--- NOTE | 2017-04-12 08:50 | Consultation-Cardiology ---
HPI-Cardiology Cardiology Consultation: Date of Consultation 04/12/17 Time Seen by Provider: 08:30 Date of Admission 04-11-17 Attending Physician Eleonora Whyte DO Admitting Physician Eleonora Whyte DO Consulting Physician Beth Ruiz MD HPI: Chief Complaint: Reason for consultation: A-fib with RVR Mr. Beck is a 61 year old male admitted to ICU 11 from the ED. He reports he has been feeling well. He does report he had lower extremity edema last week and was seen by his PCP. He was started on Lasix with Potassium which resulted in resolution of LE edema. He states he was getting ready to exercise last evening, but he had not started yet when he felt himself go into a-fib. He reports palpitations, shortness of breath, diaphoresis and nausea with the episode. He states the palpitations persisted so he went to bed. He reports he woke up early this morning and was sweaty. He continued to have palpitations and came into the ED. He reports no c/o CP, syncope or near syncope. He reports he currently feels better. No current c/o palpitations. His spouse is at the bedside. He reports he has not been taking any OAC d/t cost. He states he will not take warfarin d/t perceived dietary restrictions. He has not been taking any ASA either. Her reports he does have sleep apnea and is compliant with CPAP tx. Review of Systems-Cardiology Review of Systems Constitutional: No chills, No fever, lightheadedness Eyes: No blurred vision Ears/Nose/Throat: No epistaxis Respiratory: As described under HPI Cardiovascular: As described under HPI Gastrointestinal: nausea Genitourinary: No dysuria, No hematuria Musculoskeletal: no symptoms reported Skin: No ulcerations JZZ-Guaqhe-Sucgmg Hx Patient Social History Alcohol Use: Occasionally Uses Recreational Drug Use: No Smoking Status: Former Smoker Type Used: Cigarettes Recent Foreign Travel: No Recent Infectious Disease Expo: No Hospitalization with Isolation: Denies Physical Abuse Screen: No Sexual Abuse: No Immunizations Up To Date Tetanus Booster (TDap): Unknown Past Medical History PMH As described under Assessment. Family Medical History Family Medical History: He reports his mother had an [place] and cancer. No reported h/o premature CAD or SCD. Family History: Hypertension 19 MOTHER Allergies and Home Medications Allergies Coded Allergies: No Known Drug Allergies (Verified , 11/27/07) Home Medications Fluconazole 200 Mg Tablet, 200 MG PO DAILY for 10 Days, (Reported) 10 DAY THERAPY FILLED 04-04-17 Furosemide 40 Mg Tablet, 40 MG PO DAILY, (Reported) Ketoconazole 15 Gm Cream..g., TP BID, (Reported) Ketoconazole 200 Mg Tablet, 200 MG PO DAILY for 7 Days, (Reported) 7 DAY THERAPY TO START AFTER FLUCONAZOLE THERAPY COMPELTED Potassium Chloride 20 Meq Tablet.er, 20 MEQ PO DAILY, (Reported) Testosterone Cypionate 200 Mg/1 Ml Vial, 200 MG IM EVERY 2 WEEKS, (Reported) Physical Exam-Cardiology Physical Exam Vital Signs/I&O Vital Sign - Last 12Hours 04/12/17 04/12/17 04/12/17 04/12/17 02:20 02:45 03:07 03:07 Temp 96.9 98.0 Pulse 95 92 92 Resp 20 17 B/P (MAP) Pulse Ox 95 98 97 O2 Delivery Nasal Cannula Nasal Cannula Nasal Cannula O2 Flow Rate 2.00 2.00 2.00 04/12/17 04/12/17 04/12/17 04/12/17 03:15 03:30 03:45 04:00 Pulse 86 82 84 83 Resp 9 15 14 14 B/P (MAP) Pulse Ox 97 93 96 97 O2 Delivery Nasal Cannula Nasal Cannula Nasal Cannula Nasal Cannula O2 Flow Rate 2.00 2.00 2.00 2.00 04/12/17 04/12/17 04/12/17 04/12/17 04:21 04:30 04:42 04:45 Pulse 75 76 91 97 Resp 13 10 15 10 B/P (MAP) 104/77 90/72 108/83 100/59 Pulse Ox 96 97 97 97 O2 Delivery Nasal Cannula Nasal Cannula Nasal Cannula Nasal Cannula O2 Flow Rate 2.00 2.00 2.00 2.00 04/12/17 04/12/17 04/12/17 04/12/17 05:00 05:15 05:45 06:00 Pulse 103 81 78 73 Resp 36 15 14 15 B/P (MAP) 93/71 101/73 91/59 91/67 Pulse Ox 95 97 96 96 O2 Delivery Nasal Cannula Nasal Cannula Nasal Cannula Nasal Cannula O2 Flow Rate 2.00 2.00 2.00 2.00 04/12/17 04/12/17 04/12/17 11/15/17 06:15 06:30 06:45 07:00 Pulse 85 72 79 97 Resp B/P (MAP) 104/78 98/73 96/77 112/76 Pulse Ox 97 98 98 94 O2 Delivery Nasal Cannula Nasal Cannula Nasal Cannula Nasal Cannula O2 Flow Rate 2.00 2.00 2.00 2.00 04/12/17 04/12/17 04/12/17 04/12/17 07:03 07:15 07:30 07:45 Pulse 84 73 95 78 Resp 04 12 15 B/P (MAP) 119/73 106/79 95/63 Pulse Ox 98 96 95 O2 Delivery Nasal Cannula Nasal Cannula Nasal Cannula O2 Flow Rate 2.00 2.00 2.00 04/12/17 04/12/17 04/12/17 04/12/17 08:00 08:03 08:15 08:30 Pulse 79 96 87 Resp B/P (MAP) 95/80 110/77 108/76 Pulse Ox 95 98 96 O2 Delivery Nasal Cannula Room Air Nasal Cannula Nasal Cannula O2 Flow Rate 2.00 2.00 2.00 04/12/17 04/12/17 04/12/17 04/12/17 08:45 09:00 09:15 09:30 Pulse 100 92 106 93 Resp B/P (MAP) 97/79 109/76 120/87 123/86 Pulse Ox 96 96 94 95 O2 Delivery Nasal Cannula Nasal Cannula Nasal Cannula Nasal Cannula O2 Flow Rate 2.00 2.00 2.00 2.00 04/12/17 04/12/17 10:00 11:00 Pulse 93 96 Resp B/P (MAP) 106/81 118/75 Pulse Ox 96 95 O2 Delivery Nasal Cannula Nasal Cannula O2 Flow Rate 2.00 2.00 Capillary Refill : Less Than 3 Seconds Constitutional: AAO x 3 HEENT: PERRL, hearing is well preserved, No hard of hearing, oral hygience is good Neck: No carotid bruit, carotid pulses are 2 + bilaterally Respiratory: No accessory muscle use, No respiratory distress, lungs clear to auscultation Cardiovascular: irregularly irregular, No JVD, S1 and S2, systolic murmur Gastrointestinal: No tender, soft, round, audible bowel sounds Rectal: deferred Extremities: no lower extremity edema bilateral Neurologic/Psychiatric: grossly intact Skin: No ulcerations Data Review Labs Laboratory Tests 04/11/17 23:20: White Blood Count 9.3, Red Blood Count 6.14H, Hemoglobin 18.5H, Hematocrit 53, Mean Corpuscular Volume 87, Mean Corpuscular Hemoglobin 30, Mean Corpuscular Hemoglobin Concent 35, Red Cell Distribution Width 13.1, Platelet Count 214, Mean Platelet Volume 9.8, Neutrophils (%) (Auto) 45, Lymphocytes (%) (Auto) 38, Monocytes (%) (Auto) 13H, Eosinophils (%) (Auto) 4, Basophils (%) (Auto) 0, Neutrophils # (Auto) 4.2, Lymphocytes # (Auto) 3.5, Monocytes # (Auto) 1.2H, Eosinophils # (Auto) 0.3, Basophils # (Auto) 0.0, Prothrombin Time 12.7, INR Comment 0.9, Activated Partial Thromboplast Time 27, Sodium Level 140, Potassium Level 3.9, Chloride Level 105, Carbon Dioxide Level 20L, Anion Gap 15H , Blood Urea Nitrogen 14, Creatinine 0.94, Estimat Glomerular Filtration Rate > 60, BUN/Creatinine Ratio 15, Glucose Level 122H, Calcium Level 9.0, Magnesium Level 2.5H, Total Bilirubin 0.5, Aspartate Amino Transf (AST/SGOT) 21, Alanine Aminotransferase (ALT/SGPT) 26, Alkaline Phosphatase 52, Myoglobin 53.1, Troponin I < 0.30, Total Protein 7.1, Albumin 4.1, Thyroid Stimulating Hormone ( TSH) 4.84 04/12/17 04:45: White Blood Count 6.8, Red Blood Count 5.84, Hemoglobin 17.6, Hematocrit 52, Mean Corpuscular Volume 88, Mean Corpuscular Hemoglobin 30, Mean Corpuscular Hemoglobin Concent 34, Red Cell Distribution Width 13.1, Platelet Count 213, Mean Platelet Volume 9.8, Neutrophils (%) (Auto) 44, Lymphocytes (%) (Auto) 41, Monocytes (%) (Auto) 11, Eosinophils (%) (Auto) 3, Basophils (%) (Auto) 0, Neutrophils # (Auto) 3.0, Lymphocytes # (Auto) 2.8, Monocytes # (Auto) 0.8, Eosinophils # (Auto) 0.2, Basophils # (Auto) 0.0, Sodium Level 142, Potassium Level 4.2, Chloride Level 105, Carbon Dioxide Level 28, Anion Gap 9, Blood Urea Nitrogen 13, Creatinine 1.04, Estimat Glomerular Filtration Rate > 60, BUN/ Creatinine Ratio 13, Glucose Level 107H, Calcium Level 8.5, Magnesium Level 2.1 , Troponin I < 0.30, Triglycerides Level 131, Cholesterol Level 155, LDL Cholesterol Direct 116, VLDL Cholesterol 26, HDL Cholesterol 29L 04/12/17 11:00: Troponin I < 0.30 Radiology NAME: GABRIELE BECK [facility] REC#: [id number] PT STATUS: ADM IN : 1955 PHYSICIAN: LONI DEVINE MD ADMIT DATE: 04/12/17/ICU Draft Date of Exam:04/12/17 CHEST 1 VIEW, AP/PA ONLY INDICATION: Atrial fib. Comparison with 06/23/2016. FINDINGS: The lungs are well-aerated and clear. Heart is upper limits of normal. Pulmonary vasculature is normal. No pneumothorax or pleural effusion. IMPRESSION: No acute abnormality. Dictated on workstation # [id number] Dict: 04/12/17 0744 Trans: 04/12/17 0752 [facility] [id number] Interpreted by: JULI RODRÍGUEZ MD Electronically signed by: ECG Impression ECG Initial ECG Impression: Atrial Fibrillation A/P-Cardiology Assessment/Admission Diagnosis Recurrent PAF. PAF was first documented on ECG of 06/22/16 at [facility], [place], [place] Non compliance with stoke prophylaxis. Previously on OAC with Eliquis - however has not been taking it for greater than 6 months No evidence of significant myocardial ischemia or infarction on this study. Normal regional wall motion. Normal global left ventricular systolic function with a calculated ejection of 57%. Mild cardiomegaly. Per MPI of June 2016 Echocardiogram of May 2016 showed LVEF 65%. Mild LV and LA enlargement. Mild concentric LVH. Trivial to mild MR, TR, pulmonic regurg and aortic regurg. No evidence of significant valvular stenosis. PASP estimated to be approx 30mmHg. Quit smoking in 1982 Family h/o [place] Sleep apnea syndrome for which he is on CPAP tx per Dr. Jiménez - states he has been compliant Discussion and Recomendations H/O PAF. He is currently in a-fib with a controlled ventricular response at this time. We will stop Cardizem gtt and start him on OAC. He states he cannot afford Eliquis. We will start Xarelto 20mg daily. We will stop the VICK (-) since last documented LVEF was approx 60%. We will also stop the BB d/t somewhat low BP. We have discussed with him the treatment options for a-fib. He is not a good candidate for electrical cardioversion at this time d/t the fact he has not been on any OAC or anti-platelet tx for greater than 6 months. Continue to monitor lab Ambulate in halls We stressed the importance of compliance with medications We would like to thank medical services for this consulte Further recommendations will be based on his hospital course This consult is being scribed by Yanet Simpson APRN on behalf of Dr. Ruiz after discussion regarding plan of care. Clinical Quality Measures DVT/VTE Risk/Contraindication: Risk Factor Score Per Nursin RFS Level Per Nursing on Admit: 3=High Physician Assessment Physician Assessment Feels better since admission. Palp under control. No cp or shortness of breath Lungs: good bilat air entry Cor: irreg, rate-controlled Ext: no c/c/e A&R * As documented in our note above that I updated (italics) and as noted below * Oral long-acting dilt for vent rate control * Rivaroxaban for stroke prophylaxis * Soc Svces consult to help with procurement of meds * I discussed his CV issues and our treatment strategy with him, including the indications and potential risks of OACs. Advised compliance * Monitor labs MARIANGEL SIMPSON Apr 12, 2017 08:50 BETH RUIZ MD [facility] Apr 12, 2017 12:59
[2017-04-12] MEDS ORDERED: ASPIRIN E.C. 325 MG (ECOTRIN) TABLET PO SCH (09:00)
[2017-04-12] MEDS ORDERED: DILTIAZEM 240 MG (CARDIZEM CD) CAP PO NR (09:00)
[2017-04-12] MEDS ORDERED: meTOprolol TARTRATE 25 MG (LOPRESSOR) TABLET PO SCH (09:00)
[2017-04-12] MEDS ORDERED: RIVAROXABAN 20 MG TABLET (XARELTO) PO NR (09:00)
[2017-04-12] MEDS ORDERED: lisINopril 5 MG (PRINIVIL) TABLET PO SCH (09:00)
[2017-04-12] MEDS: DILTIAZEM 240 MG (CARDIZEM CD) CAP PO SCH (09:31)
[2017-04-12] MEDS ORDERED: FURO-124 PO (12:07)
[2017-04-12] MEDS ORDERED: KETO200T PO (12:07)
[2017-04-12] MEDS ORDERED: FLUC200T5 PO (12:07)
[2017-04-12] MEDS ORDERED: POTA-51 PO (12:07)
[2017-04-12] MEDS ORDERED: KETO15CR2 TP (12:07)
[2017-04-12] MEDS ORDERED: TEST200V27 IM (12:07)
--- NOTE | 2017-04-12 12:17 | History & Physicial ---
History of Present Illness History of Present Illness Reason for visit/HPI This is a 61 year old male with a know history of paroxysmal atrial fibrillation who has not been compliant with medications due to cost who presented to the emergency room with heart palpitations and diaphoresis. He had been seen in my office yesterday for a followup on swelling and he was in a regular rhythm then but I did discuss with him that he was high risk for going in and out of atrial fibrillation and that he really needed to be on anticoagulants. He refused due to cost and side effects. He stated he was feeling fine until last night when he got on his exercise machine and then his heart felt like it started beating fast and never slowed down. Date of Admission Apr 12, 2017 at 00:15 Date Seen by Provider: Apr 12, 2017 Time Seen by Provider: 12:12 I consulted on this patient on 04/12/17 12:11 Attending Physician Eleonora Whyte DO Admitting Physician Eleonora Whyte DO Consult Allergies and Home Medications Allergies Coded Allergies: No Known Drug Allergies (Verified , 04/24/07) Home Medications Fluconazole 200 Mg Tablet, 200 MG PO DAILY for 10 Days, (Reported) 10 DAY THERAPY FILLED 04-04-17 Furosemide 40 Mg Tablet, 40 MG PO DAILY, (Reported) Ketoconazole 15 Gm Cream..g., TP BID, (Reported) Ketoconazole 200 Mg Tablet, 200 MG PO DAILY for 7 Days, (Reported) 7 DAY THERAPY TO START AFTER FLUCONAZOLE THERAPY COMPELTED Potassium Chloride 20 Meq Tablet.er, 20 MEQ PO DAILY, (Reported) Testosterone Cypionate 200 Mg/1 Ml Vial, 200 MG IM EVERY 2 WEEKS, (Reported) Past Pqeptaa-Cqqzbj-Ndnazz Hx Patient Social History Alcohol Use: Occasionally Uses Number of Drinks Today: AA Alcohol Beverage of Choice: Beer Recreational Drug Use: No Smoking Status: Former Smoker Former Smoker, Quit: May 29, 1982 Type Used: Cigarettes Physical Abuse Screen: No Sexual Abuse: No Recent Foreign Travel: No Contact w/other who traveled: No Recent Hopitalizations: No Recent Infectious Disease Expo: No Immunizations Up To Date Tetanus Booster (TDap): Unknown Pediatric: No Seasonal Allergies Seasonal Allergies: Yes Surgeries Yes (LEFT SHOULDER REPAIR, Benign cyst removal) Adenoidectomy, Appendectomy, Orthopedic, Tonsillectomy Respiratory Yes (HAS C-PAP; Seasonal asthma w/ allergies) Currently Using CPAP: Yes Cardiovascular Yes (REFUSES HTN MEDS, REFUSES ASPIRIN DAILY OR BLOOD THINNERS ) Atrial Fibrillation, Chronic Edema/Swelling, Hypertension Neurological No Reproductive System Hx Reproductive Disorders: No Genitourinary Yes Kidney Stones Gastrointestinal No Musculoskeletal Yes (BACK PAIN,SPASMS) Arthritis Endocrine History of Endocrine Disorders: No HEENT History of HEENT Disorders: No Cancer No Psychosocial History of Psychiatric Problem: Yes (HX OF RX XANAX, BUSPAR, TRAZODONE) Behavioral Health Disorders: Sleep Difficulties, Anxiety Integumentary History of Skin or Integumenta: Yes (rash r gluteal fold) Skin/Integumentary Disorders: Recent Skin Changes Blood Transfusions History of Blood Disorders: No Family Medical History Significant Family History: No Pertinent Family Hx Family Hx: Hypertension 19 MOTHER Constitutional: diaphoresis, weakness EENTM: No see HPI, No no symptoms reported, No ear discharge, No hearing loss, No ear pain, No blurred vision, No double vision, No eye pain, No tearing, No vision loss, No dental problems, No hoarseness, No mouth pain, No mouth swelling , No epistaxis, No nose congestion, No nose pain, No throat pain, No throat swelling, No other Respiratory: No no symptoms reported, No see HPI, No cough, No dyspnea on exertion, No hemoptysis, No orthopnea, No phlegm, No short of breath, No stridor , No wheezing, No other Cardiovascular: edema, palpitations Gastrointestinal: No RUQ, No LUQ, No RLQ, No LLQ, No no symptoms reported, No see HPI, No abdominal pain, No constipation, No diarrhea, No dysphagia, No hematemesis, No heartburn, No jaundice, No loss of appetite, No melena, No nausea, No vomiting, No other Genitourinary: No no symptoms reported, No see HPI, No decreased output, No discharge, No dysuria, No frequency, No hematuria, No hesitancy, No incontinence , No nocturia, No pain, No other Musculoskeletal: No no symptoms reported, No see HPI, No back pain, No gout, No joint pain, No joint swelling, No muscle pain, No muscle stiffness, No muscle cramps, No muscle twitching, No muscle weakness, No neck pain, No other Skin: No no symptoms reported, No see HPI, No change in color, No change in hair/nails, No dryness, No hx of skin cancer, No lesions, No lumps, No pruritus , No rash, No other Psychiatric/Neurological: Denies No Symptoms Reported, Denies See HPI, Denies Anxiety, Denies Depressed, Denies Emotional Problems, Denies Headache, Denies Numbness, Denies Paresthesia, Denies Pre-Existing Deficit, Denies Seizure, Denies Tingling, Denies Tremors, Denies Weakness, Denies Other Physical Exam Vital Signs Vital Sign - Last 12Hours 04/11/17 04/12/17 23:15 02:20 Temp 97.1 Pulse 144 Resp 14 B/P (MAP) 118/97 Pulse Ox 93 O2 Delivery Room Air O2 Flow Rate 2.00 Capillary Refill : Less Than 3 Seconds General Appearance: No Apparent Distress HEENT: Pharynx Normal Neck: Supple Respiratory: Lungs Clear Cardiovascular: Systolic Murmur, Irregularly Irregular Gastrointestinal: Normal Bowel Sounds, Non Tender, Soft Rectal: Deferred Back: No CVA Tenderness Extremity: Non Tender, No Calf Tenderness, No Pedal Edema Neurologic/Psychiatric: Alert, Oriented x3 Skin: Normal Color, Warm/Dry Lymphatic: No Adenopathy Comments Laboratory Tests 04/11/17 23:20: White Blood Count 9.3, Red Blood Count 6.14H, Hemoglobin 18.5H, Hematocrit 53, Mean Corpuscular Volume 87, Mean Corpuscular Hemoglobin 30, Mean Corpuscular Hemoglobin Concent 35, Red Cell Distribution Width 13.1, Platelet Count 214, Mean Platelet Volume 9.8, Neutrophils (%) (Auto) 45, Lymphocytes (%) (Auto) 38, Monocytes (%) (Auto) 13H, Eosinophils (%) (Auto) 4, Basophils (%) (Auto) 0, Neutrophils # (Auto) 4.2, Lymphocytes # (Auto) 3.5, Monocytes # (Auto) 1.2H, Eosinophils # (Auto) 0.3, Basophils # (Auto) 0.0, Prothrombin Time 12.7, INR Comment 0.9, Activated Partial Thromboplast Time 27, Sodium Level 140, Potassium Level 3.9, Chloride Level 105, Carbon Dioxide Level 20L, Anion Gap 15H , Blood Urea Nitrogen 14, Creatinine 0.94, Estimat Glomerular Filtration Rate > 60, BUN/Creatinine Ratio 15, Glucose Level 122H, Calcium Level 9.0, Magnesium Level 2.5H, Total Bilirubin 0.5, Aspartate Amino Transf (AST/SGOT) 21, Alanine Aminotransferase (ALT/SGPT) 26, Alkaline Phosphatase 52, Myoglobin 53.1, Troponin I < 0.30, Total Protein 7.1, Albumin 4.1, Thyroid Stimulating Hormone ( TSH) 4.84 04/12/17 04:45: White Blood Count 6.8, Red Blood Count 5.84, Hemoglobin 17.6, Hematocrit 52, Mean Corpuscular Volume 88, Mean Corpuscular Hemoglobin 30, Mean Corpuscular Hemoglobin Concent 34, Red Cell Distribution Width 13.1, Platelet Count 213, Mean Platelet Volume 9.8, Neutrophils (%) (Auto) 44, Lymphocytes (%) (Auto) 41, Monocytes (%) (Auto) 11, Eosinophils (%) (Auto) 3, Basophils (%) (Auto) 0, Neutrophils # (Auto) 3.0, Lymphocytes # (Auto) 2.8, Monocytes # (Auto) 0.8, Eosinophils # (Auto) 0.2, Basophils # (Auto) 0.0, Sodium Level 142, Potassium Level 4.2, Chloride Level 105, Carbon Dioxide Level 28, Anion Gap 9, Blood Urea Nitrogen 13, Creatinine 1.04, Estimat Glomerular Filtration Rate > 60, BUN/ Creatinine Ratio 13, Glucose Level 107H, Calcium Level 8.5, Magnesium Level 2.1 , Troponin I < 0.30, Triglycerides Level 131, Cholesterol Level 155, LDL Cholesterol Direct 116, VLDL Cholesterol 26, HDL Cholesterol 29L 04/12/17 11:00: Troponin I < 0.30 Assessment/Plan Assessment and Plan 1. Paroxysmal Atrial Fibrillation with RVR--cardizem drip stopped this AM per cardiology and switched to oral diltiazem with oral xarelto 2. Edema--stable 3. TANAY--has been compliant with treatment Problems: Clinical Quality Measures DVT/VTE Risk/Contraindication: Risk Factor Score Per Nursin RFS Level Per Nursing on Admit: 3=High ELEONORA WHYTE DO Apr 12, 2017 12:17
[2017-04-12] MEDS ORDERED: ATORVASTATIN 40 MG (LIPITOR) TABLET PO SCH (21:00)
[2017-04-13] VITALS (12 sets, daily range): BP systolic 108–161; BP diastolic 73–118
[2017-04-13] MEDS: DILTIAZEM DRIP 100 MG/NS 100 ML IV SCH ×2 (03:18)
[2017-04-13 05:04] LABS: BASOPHILS % (AUTO) 0 % (0-10); EOSINOPHILS # (AUTO) 0.2 10^3/uL (0.0-0.3); EOSINOPHILS % (AUTO) 3 % (0-10); LYMPHOCYTES # (AUTO) 2.3 X 10^3 (1.0-4.0); LYMPHOCYTES % (AUTO) 30 % (12-44); MEAN CORPUSCULAR HEMOGLOBIN 30 PG (25-34); MEAN CORPUSCULAR HGB CONC 35 G/DL (32-36); MEAN CORPUSCULAR VOLUME 87 FL (80-99); MONOCYTES # (AUTO) 0.8 X 10^3 (0.0-1.0); MONOCYTES % (AUTO) 10 % (0-12); NEUTROPHILS # (AUTO) 4.4 X 10^3 (1.8-7.8); NEUTROPHILS % (AUTO) 57 % (42-75); PLATELET COUNT 219 10^3/uL (130-400); RED BLOOD COUNT 5.98 10^6/uL (4.35-5.85); RED CELL DISTRIBUTION WIDTH 13.1 % (10.0-14.5); WHITE BLOOD COUNT 7.7 10^3/uL (4.3-11.0)
[2017-04-13 05:50] LABS: ANION GAP 10 MMOL/L (5-14); BLOOD UREA NITROGEN 16 MG/DL (7-18); BUN/CREATININE RATIO 19; CALCIUM 8.7 MG/DL (8.5-10.1); CARBON DIOXIDE 22 MMOL/L (21-32); CHLORIDE 106 MMOL/L (98-107); CREATININE SERUM 0.83 MG/DL (0.60-1.30); GFR ESTIMATED > 60; GLUCOSE 101 MG/DL (70-105); MAGNESIUM 2.3 MG/DL (1.8-2.4); PHOSPHORUS 2.8 MG/DL (2.3-4.7); POTASSIUM 4.1 MMOL/L (3.6-5.0); SODIUM 138 MMOL/L (135-145)
[2017-04-13] MEDS: MAGNESIUM 1 GM/100 ML IVPB 100 ML IV SCH (06:00)
[2017-04-13] MEDS: POTASSIUM CL 10MEQ/50ML IVPB 50 ML IV SCH (06:00)
[2017-04-13] MEDS: KCL 20 MEQ TAB (K-DUR) PO SCH (06:00)
--- NOTE | 2017-04-13 08:42 | Progress Note-Cardiology ---
Cardiology SOAP Progress Note Subjective: Sitting up in bed. States he feels well. No c/o CP, dyspnea, palpitations. Objective: I&O/Vital Signs Vital Sign - Last 12Hours 04/12/17 04/12/17 04/12/17 04/13/17 22:00 23:00 23:20 00:00 Pulse 73 79 83 B/P (MAP) 136/80 166/114 145/100 Pulse Ox 95 95 93 O2 Delivery Nasal Cannula Nasal Cannula Nasal Cannula Nasal Cannula O2 Flow Rate 2.00 2.00 2.00 2.00 04/13/17 04/13/17 04/13/17 04/13/17 01:00 01:00 02:00 03:00 Pulse 82 78 74 87 B/P (MAP) 143/93 142/77 120/87 Pulse Ox 94 95 96 O2 Delivery Nasal Cannula Nasal Cannula Nasal Cannula O2 Flow Rate 2.00 2.00 2.00 04/13/17 04/13/17 04/13/17 04/13/17 04:00 05:00 06:00 07:00 Pulse 91 116 60 61 B/P (MAP) 119/76 146/100 161/99 Pulse Ox 95 96 94 O2 Delivery Nasal Cannula Nasal Cannula Nasal Cannula O2 Flow Rate 2.00 2.00 2.00 Weight (Pounds): 294 Weight (Ounces): 0.0 Weight (Calculated Kilograms): [phone] Constitutional: AAO x 3 Respiratory: No accessory muscle use, No respiratory distress, lungs clear to auscultation Cardiovascular: regular rate-rhythm, No JVD, S1 and S2, systolic murmur Gastrointestional: No tender, soft, round, audible bowel sounds Extremities: no lower extremity edema bilateral Neurologic/Psychiatric: grossly intact Skin: No ulcerations Results/Procedures: Labs Laboratory Tests 04/12/17 11:00: Troponin I < 0.30 04/13/17 04:45: White Blood Count 7.7, Red Blood Count 5.98H, Hemoglobin 18.0H, Hematocrit 52, Mean Corpuscular Volume 87, Mean Corpuscular Hemoglobin 30, Mean Corpuscular Hemoglobin Concent 35, Red Cell Distribution Width 13.1, Platelet Count 219, Mean Platelet Volume 10.0, Neutrophils (%) (Auto) 57, Lymphocytes (%) (Auto) 30 , Monocytes (%) (Auto) 10, Eosinophils (%) (Auto) 3, Basophils (%) (Auto) 0, Neutrophils # (Auto) 4.4, Lymphocytes # (Auto) 2.3, Monocytes # (Auto) 0.8, Eosinophils # (Auto) 0.2, Basophils # (Auto) 0.0, Sodium Level 138, Potassium Level 4.1, Chloride Level 106, Carbon Dioxide Level 22, Anion Gap 10, Blood Urea Nitrogen 16, Creatinine 0.83, Estimat Glomerular Filtration Rate > 60, BUN/ Creatinine Ratio 19, Glucose Level 101, Calcium Level 8.7, Phosphorus Level 2.8 , Magnesium Level 2.3 A/P: Assessment: Recurrent PAF. PAF was first documented on ECG of 06/22/16 at [place], [place] - has converted to SR Non compliance with stroke prophylaxis. Previously on OAC with Eliquis - but did not take it for greater than 6 months prior to this admission (insurance issues) - now on rivaroxaban No evidence of significant myocardial ischemia or infarction on this study. Normal regional wall motion. Normal global left ventricular systolic function with a calculated ejection of 57%. Mild cardiomegaly. Per MPI of June 2016 Echocardiogram of May 2016 showed LVEF 65%. Mild LV and LA enlargement. Mild concentric LVH. Trivial to mild MR, TR, pulmonic regurg and aortic regurg. No evidence of significant valvular stenosis. PASP estimated to be approx 30mmHg. HTN - start BB tx Quit smoking in 1982 Family h/o [place] Sleep apnea syndrome for which he is on CPAP tx per Dr. Jiménez - states he has been compliant Plan: H/O PAF. He has converted to SR with a controlled rate He states he cannot afford Eliquis. We will start Xarelto 20mg daily. We will start Toprol XL d/t HTN Continue to monitor lab Ambulate in halls We stressed the importance of compliance with medications Echocardiogram pending Likely ok to discharge home today from cardiac stand point with out pt f/u Physician Assessment Physician Assessment Feels good today. No palp. Has ambulated well. No cp or shortness of breath Lungs: good bilat air entry Cor: regular Ext: no c/c/e A&R * As documented in our note above that I updated (italics) and as noted below * Oral long-acting dilt for vent rate control * Rivaroxaban for stroke prophylaxis * I discussed his CV issues and our treatment strategy with him, including the indications and potential risks of OACs. Advised compliance * Outpatient f/u advised MARIANGEL HUERTA [employer] Apr 13, 2017 08:42 MARQUISE PLATA MD [facility] Apr 13, 2017 09:51
[2017-04-13] MEDS ORDERED: RIVA20TA PO (08:48)
[2017-04-13] MEDS ORDERED: ATOR40TA PO (08:48)
[2017-04-13] MEDS ORDERED: METO-387 PO (08:48)
[2017-04-13] MEDS ORDERED: DILT240C63 PO (08:48)
[2017-04-13] MEDS: DILTIAZEM 240 MG (CARDIZEM CD) CAP PO SCH (08:58)
--- NOTE | 2017-04-13 09:10 | Diagnostic Imaging Report ---
INDICATION: Followup atrial fib COMPARISON: 04/12/2017 FINDINGS: Single view chest demonstrates stable cardiac enlargement. Lungs are otherwise clear. There is no pneumothorax, effusion or infiltrate. Osseous structures normal. IMPRESSION: Stable cardiac enlargement without pulmonary edema or infiltrate. Dictated by: Dictated on workstation # [id number]
--- NOTE | 2017-04-13 12:25 | Discharge Inst-Simple/Standard ---
Discharge Inst-Standard Discharge Medications New, Converted or Re-Newed RX: Transmitted to Pharmacy Patient Instructions/Follow Up Plan of Care/Instructions/FU: Fwup with me as scheduled--has pending appointment next month Activity as Tolerated: Yes Discharge Diet: Cardiac Diet ILIANA DYKES DO Apr 13, 2017 12:25 pm
--- NOTE | 2017-04-13 12:31 | Discharge Summary ---
Diagnosis/Chief Complaint Date of Admission Apr 12, 2017 at 12:15 am Date of Discharge Discharge Date: Apr 13, 2017 Admission Diagnosis Admission Diagnosis 1. Paroxysmal Atrial Fibrillation with RVR--cardizem drip stopped this AM per cardiology and switched to oral diltiazem with oral xarelto 2. Edema--stable 3. TANYA--has been compliant with treatment Discharge Diagnosis 1. Recurrent Paroxysmal Atrial Fibrillation--RVR on admit, now back in NSR 2. Edema--resolved 3. Hypertension--stable 4. TANYA--compliant with CPAP Reason Hospital Visit This is a 61 year old male with a know history of paroxysmal atrial fibrillation who has not been compliant with medications due to cost who presented to the emergency room with heart palpitations and diaphoresis. He had been seen in my office yesterday for a followup on swelling and he was in a regular rhythm then but I did discuss with him that he was high risk for going in and out of atrial fibrillation and that he really needed to be on anticoagulants. He refused due to cost and side effects. He stated he was feeling fine until last night when he got on his exercise machine and then his heart felt like it started beating fast and never slowed down. Discharge Summary Hospital Course Hospital Course This is a 61 year old male with a know history of paroxysmal atrial fibrillation who has not been compliant with medications due to cost who presented to the emergency room with heart palpitations and diaphoresis. He had been seen in my office yesterday for a followup on swelling and he was in a regular rhythm then but I did discuss with him that he was high risk for going in and out of atrial fibrillation and that he really needed to be on anticoagulants. He refused due to cost and side effects. He stated he was feeling fine until last night when he got on his exercise machine and then his heart felt like it started beating fast and never slowed down. He was placed on a cardizem drip and admitted to the ICU. The following morning the cardizem drip was discontinued and he was started on oral cardizem. He was also started on xarelto. He remained in atrial fibrillation during his second hospital day with his heart rate going into the 140s with activity but staying 80s to 100 at rest. He converted back to a normal sinus rhythm during the second night of his hospital stay. He was instructed by both cardiology and myself on the importance of being compliant with his medications and followup including the anticoagulant. He will be discharged home on xarelto, cardizem and metoprolol and will followup with cardiology in 2 weeks and with myself in 4 weeks. Labs Laboratory Tests 04/11/17 23:20: Red Blood Count 6.14H, Hemoglobin 18.5H, Monocytes (%) (Auto) 13H, Monocytes # ( Auto) 1.2H, Carbon Dioxide Level 20L, Anion Gap 15H, Glucose Level 122H, Magnesium Level 2.5H 04/12/17 04:45: Glucose Level 107H, HDL Cholesterol 29L 04/12/17 11:00: 04/13/17 04:45: Red Blood Count 5.98H, Hemoglobin 18.0H Procedures None. Discharge Physical Examination Allergies: Coded Allergies: No Known Drug Allergies (Verified , 04/24/07) Vitals & I&Os Vital Signs Date Time Temp Pulse Resp B/P (MAP) Pulse Ox O2 Delivery O2 Flow Rate FiO2 04/13/17 07:00 61 04/13/17 06:00 161/99 94 Nasal Cannula 2.00 04/12/17 19:00 34 04/12/17 03:07 98.0 General Appearance: Alert, Oriented X3, Cooperative, No Acute Distress Cardiovascular: Regular Rate Abdominal: Normal Bowel Sounds, Soft, No Tenderness Extremities: No Clubbing, No Cyanosis, No Edema Neuro: Normal Gait Psych/Mental Status: Mental Status NL Discharge Home Medications Reviewed and agree with Discharge Medication list on patient's Discharge Instruction sheet Instructions to Patient/Family Please see electronic discharge instructions given to patient. Clinical Quality Measures DVT/VTE Risk/Contraindication: Risk Factor Score Per Nursin RFS Level Per Nursing on Admit: 3=High ILIANA DYKES DO Apr 13, 2017 12:31 pm
[2017-04-13] MEDS ORDERED: RIVAROXABAN 20 MG TABLET (XARELTO) PO SCH (17:00)
== END 2017-04-13 13:16 | disposition home or self-care (01) | DRG 310 ==
LOC: EDUNIT# 23:12 → ER 23:13 → ICU 04-12 00:15
PROVIDERS: ADMIT Family Medicine; ATTEND Family Medicine
DX: I48.0 Paroxysmal atrial fibrillation (principal); G47.33 Obstructive sleep apnea (adult) (pediatric); I10 Essential (primary) hypertension; R60.9 Edema, unspecified; Z87.891 Personal history of nicotine dependence
CPT/HCPCS: 36415; 71010; 80048; 80053; 80061; 83735; 83874; 84100; 84443; 84484; 85025; 85610; 85730; 87081; 93005; 93041; 93306; 96361; 96365; 96366; 96372; 96375